=== PATIENT | female | born 1970 | race Caucasian/White ===

== ENCOUNTER 2019-12-31 05:40 | Inpatient (IN) | payer BC, OTHER ==
[~2019-12-31] VITALS: Ht 172.7 cm; Wt 79.4 kg
[2019-12-31] MEDS ORDERED: LIDOCAINE 2% VISCOUS 15 ML UDC PO ONE (06:00)
[2019-12-31] MEDS ORDERED: ANTACID SUSP 30 ML UDC (MYLANTA) PO ONE (06:00)
[2019-12-31] MEDS ORDERED: NS IV 1000 ML 1,000 ML IV SCH (06:00)
[2019-12-31] MEDS ORDERED: ONDANSETRON 4 MG/2 ML (SDV) Z0FRAN IVP ONE (06:00)
[2019-12-31 06:08] LABS: BASOPHILS % (AUTO) 0 % (0-10); EOSINOPHILS # (AUTO) 0.4 10^3/uL (0.0-0.3); EOSINOPHILS % (AUTO) 3 % (0-10); HEMATOCRIT 43 % (35-52); HEMOGLOBIN 13.7 G/DL (11.5-16.0); LYMPHOCYTES # (AUTO) 1.7 X 10^3 (1.0-4.0); LYMPHOCYTES % (AUTO) 13 % (12-44); MEAN CORPUSCULAR HEMOGLOBIN 27 PG (25-34); MEAN CORPUSCULAR HGB CONC 32 G/DL (32-36); MEAN CORPUSCULAR VOLUME 85 FL (80-99); MEAN PLATELET VOLUME 10.9 FL (7.4-10.4); MONOCYTES # (AUTO) 0.5 X 10^3 (0.0-1.0); MONOCYTES % (AUTO) 4 % (0-12); NEUTROPHILS # (AUTO) 9.9 X 10^3 (1.8-7.8); NEUTROPHILS % (AUTO) 79 % (42-75); PLATELET COUNT 296 10^3/uL (130-400); RED CELL DISTRIBUTION WIDTH 13.2 % (10.0-14.5); WHITE BLOOD COUNT 12.6 10^3/uL (4.3-11.0)
[2019-12-31] MEDS ORDERED: fentaNYL INJECTION 100 MCG/2 ML AMP IVP STA ×4 (06:10→09:09)
[2019-12-31] MEDS ORDERED: PANTOPRAZOLE 40 MG (PROTONIX) VIAL IV STA (06:11)
--- NOTE | 2019-12-31 06:24 | ED Abdominal Pain ---
General Chief Complaint: Chest Pain Stated Complaint: ABD AND SHOULDER PAIN Nursing Triage Note: PT. C/O MID STERNAL CHEST PAIN AND LEFT ARM PAIN. PT. REPORTED SHE COULD NOT LAY FLAT. PT. STATED THE PAIN STARTED AROUND 0300 THIS AM. PT. REPORTED HAVING A FEVER AND CHILLS THIS WEEK. Sepsis Screen: No Definite Risk Source of Information: Patient History of Present Illness Date Seen by Provider: Dec 31, 2019 Time Seen by Provider: 06:04 Initial Comments 49 yo F presenting with complaints of epigastric pain radiating to her left shoulder that came on suddenly at 3 am. She states the pain is sharp in nature and associated with nausea. She has increased pain with trying to lay back. She has history of a Ifeoma-n-y surgery for weight loss in 2014 at [facility]. She had her gallbladder removed in the past as well. She denies having pain like this before. The pain radiates to her left shoulder. She has no pain down lower in the abdomen but it is in the epigastric area of her abdomen. She has no shortness of breath, but it hurts to take a deep breath because it makes the epigastric pain worse. She has had recent subjective fever and chills this last week and general malaise but thought she had a viral illness or the "flu" but never had a cough. Allergies and Home Medications Allergies Coded Allergies: codeine (Verified Allergy, Unknown, 12/31/19) Patient Home Medication List Home Medication List Reviewed: Yes Review of Systems Review of Systems Constitutional: chills (earlier in the week), fever (earlier in the week) EENTM: No Symptoms Reported Respiratory: See HPI Cardiovascular: See HPI Gastrointestinal: See HPI, Abdominal Pain (epigastric area) Genitourinary: No Symptoms Reported Musculoskeletal: see HPI Skin: no symptoms reported Psychiatric/Neurological: Anxiety, Headache (this last week) Past Bztbkal-Dgdjza-Ofvmwl Hx Past Med/Social Hx: Reviewed Nursing Past Med/Soc Hx Patient Social History Recent Foreign Travel: No Contact w/Someone Who Travel: No Recent Infectious Disease Expo: No Past Medical History Surgeries: Yes Abdominal (Ifeoma-n-y Gastric Bypass for weight loss), Gallbladder Respiratory: No Cardiac: No Neurological: No Reproductive Disorders: No Genitourinary: No Physical Exam Vital Signs Vital Signs - First Documented 12/31/19 05:50 Temp 36.5 Pulse 70 Resp 16 B/P (MAP) 106/79 (88) O2 Delivery Room Air Capillary Refill : Less Than 3 Seconds Height/Weight/BMI Height: '" Weight: lbs. oz. kg; 26.00 BMI Method: General Appearance: WD/WN, severe distress (crying out in pain and very anxious) HEENT: PERRL/EOMI, pharynx normal Neck: non-tender, full range of motion, supple Respiratory: chest non-tender, lungs clear, normal breath sounds Cardiovascular: normal peripheral pulses, regular rate, rhythm Gastrointestinal: soft, no pulsatile mass, abnormal bowel sounds (hypoactive), guarding, tenderness (epigastric pain with palpation) Extremities: normal range of motion, non-tender, normal capillary refill Neurologic/Psychiatric: alert, oriented x 3, other (pt very anxious and in distress holding her epigastric area) Skin: normal color, warm/dry Progress/Results/Core Measures Results/Orders Lab Results Laboratory Tests Test 12/31/19 05:55 Range/Units White Blood Count 12.6 H 4.3-11.0 10^3/uL Red Blood Count 5.08 4.35-5.85 10^6/uL Hemoglobin 13.7 11.5-16.0 G/DL Hematocrit 43 35-52 % Mean Corpuscular Volume 85 80-99 FL Mean Corpuscular Hemoglobin 27 25-34 PG Mean Corpuscular Hemoglobin Concent 32 32-36 G/DL Red Cell Distribution Width 13.2 10.0-14.5 % Platelet Count 296 130-400 10^3/uL Mean Platelet Volume 10.9 H 7.4-10.4 FL Neutrophils (%) (Auto) 79 H 42-75 % Lymphocytes (%) (Auto) 13 12-44 % Monocytes (%) (Auto) 4 0-12 % Eosinophils (%) (Auto) 3 0-10 % Basophils (%) (Auto) 0 0-10 % Neutrophils # (Auto) 9.9 H 1.8-7.8 X 10^3 Lymphocytes # (Auto) 1.7 1.0-4.0 X 10^3 Monocytes # (Auto) 0.5 0.0-1.0 X 10^3 Eosinophils # (Auto) 0.4 H 0.0-0.3 10^3/uL Basophils # (Auto) 0.0 0.0-0.1 10^3/uL Sodium Level 138 135-145 MMOL/L Potassium Level 4.7 3.6-5.0 MMOL/L Chloride Level 103 98-107 MMOL/L Carbon Dioxide Level 20 L 21-32 MMOL/L Anion Gap 15 H 5-14 MMOL/L Blood Urea Nitrogen 14 7-18 MG/DL Creatinine 0.97 0.60-1.30 MG/DL Estimat Glomerular Filtration Rate > 60 BUN/Creatinine Ratio 14 Glucose Level 139 H 70-105 MG/DL Calcium Level 9.1 8.5-10.1 MG/DL Corrected Calcium 9.2 8.5-10.1 MG/DL Total Bilirubin 0.3 0.1-1.0 MG/DL Aspartate Amino Transf (AST/SGOT) 25 5-34 U/L Alanine Aminotransferase (ALT/SGPT) 16 0-55 U/L Alkaline Phosphatase 64 40-136 U/L Troponin I < 0.30 <0.30 NG/ML Total Protein 7.6 6.4-8.2 GM/DL Albumin 3.9 3.2-4.5 GM/DL Amylase Level 67 25-125 U/L Lipase 45 8-78 U/L My Orders Orders - RADHA BANG MD Fentanyl Injection (Sublimaze Injection (12/31/19 06:10) Pantoprazole Injection (Protonix Injecti (12/31/19 06:11) Iohexol Injection (Omnipaque 350 Mg/Ml 1 (12/31/19 06:45) Received Contrast (Hold Metformin- Contr (12/31/19 06:45) Sodium Chloride Flush (Catheter Flush Sy (12/31/19 06:45) Ns (Ivpb) (Sodium Chloride 0.9% Ivpb Bag (12/31/19 06:45) Fentanyl Injection (Sublimaze Injection (12/31/19 07:17) Ns Iv 1000 Ml (Sodium Chloride 0.9%) (12/31/19 08:26) Fentanyl Injection (Sublimaze Injection (12/31/19 08:26) Ciprofloxacin Iv 400mg/200ml (Cipro Iv S (12/31/19 08:35) Metronidazole 500mg/100ml Ivpb (Flagyl 5 (12/31/19 08:35) Medications Given in ED Current Medications Medications Dose Ordered Sig/Otis Route Start Time Stop Time Status Last Admin Dose Admin Al Hydrox/Mg Hydrox/Simethicone 30 ml ONCE ONCE PO 12/31/19 06:00 12/31/19 06:01 DC 12/31/19 06:05 30 ML Iohexol 100 ml ONCE ONCE IV 12/31/19 06:45 12/31/19 06:54 DC 12/31/19 07:05 100 ML Lidocaine HCl 15 ml ONCE ONCE PO 12/31/19 06:00 12/31/19 06:01 DC 12/31/19 06:06 15 ML Ondansetron HCl 4 mg ONCE ONCE IVP 12/31/19 06:00 12/31/19 06:01 DC 12/31/19 06:08 4 MG Sodium Chloride 10 ml NEEDED PRN IV 12/31/19 06:45 12/31/19 07:05 10 ML Sodium Chloride 100 ml ONCE ONCE IV 12/31/19 06:45 12/31/19 06:54 DC 12/31/19 07:05 80 ML Vital Signs/I&O 12/31/19 12/31/19 05:50 05:50 Temp 36.5 Pulse 70 Resp 16 B/P (MAP) 106/79 (88) O2 Delivery Room Air Room Air Blood Pressure Mean: 88 Progress Progress Note #1: Progress Note I assumed care from Dr. Moeller at 6 am on the patient. Will order Fentanyl for pain and with her history of gastric bypass surgery will see what her CT scan shows to evaluate her pain. Protonix also given to try and help control her pain symptoms in case this is gastritis. Her CBC shows elevation of her WBC count. rest of labs pending. ECG shows sinus rhythm without ST elevation and no prior tracing for comparison. Progress Note #2: Time: 06:31 Progress Note Chemistry does not show any acute significant abnormality on her electrolytes, troponin or lipase, other than she has mild elevation of glucose to 139. CXR 1 view on my review of the film shows no acute process. She has improved pain and symptoms after Protonix and fentanyl. Still waiting on Urine specimen. Will try to get CT scan to evaluate her epigastric area better. Progress Note #3: Time: 07:59 Progress Note Pt was having pain on return from CT but her blood pressure was initially only 102 systolic so given Fentanyl 25 mcg. Awaiting reading on imaging. CXR read out by radiology as no acute findings. CT report still pending at this time. Progress Note #4: Time: 08:31 Progress Note Discussed with Dr. Bruno and he did accept the patient for admission to his service for antibiotics and pain control. We will start with clear liquids and progress as she tolerates. Initial ECG Impression Date: Dec 31, 2019 Initial ECG Impression Time: 05:57 Initial ECG Rate: 68 Initial ECG Rhythm: Normal Sinus Initial ECG Comparisson: No Previous ECG Available Comment Normal sinus rhythm with heart rate 68 bpm. [place] interval 121 ms. She has no acute ST elevation but does have probable normal early repolarization changes. Her QT interval is 398 ms and a QTc interval 424 ms. There is no prior tracing available for comparison. Diagnostic Imaging Diagonstic Imaging: Xray Plain Films/CT/US/NM/MRI: chest Comments On my review of her 1 view chest x-ray she has no acute infiltrate or effusion. NAME: ESTEFANIBEATRIS HOLLOWAY [facility] REC#: [id number] PT STATUS: REG ER : 1970 PHYSICIAN: TREVA MOELLER DO ADMIT DATE: 12/31/19/ER FS Draft Date of Exam:12/31/19 CHEST 1 VIEW AP/PA ONLY INDICATION: Severe back pain. FINDINGS: Portable chest. The lungs are well-aerated and clear. Heart is not enlarged. No pulmonary edema or hilar adenopathy. No pneumothorax or pleural effusion. No bony abnormalities. IMPRESSION: Normal portable chest. Dictated on workstation # [id number] Dict: 12/31/19 0748 Trans: 12/31/19 0750 LIVIER [id number] Interpreted by: FRANCIS CHAIDEZ MD Electronically signed by: Reviewed: Reviewed by Me Diagonstic Imaging: CT Plain Films/CT/US/NM/MRI: abdomen, pelvis Comments NAME: BEATRIS EMMANUEL [facility] REC#: [id number] PT STATUS: REG ER : 1970 PHYSICIAN: TREVA MOELLER DO ADMIT DATE: 12/31/19/ER FS Draft Date of Exam:12/31/19 CT ABDOMEN/PELVIS W PROCEDURE: CT abdomen and pelvis with contrast. TECHNIQUE: Multiple contiguous axial images were obtained through the abdomen and pelvis after administration of intravenous contrast. Auto Exposure Controls were utilized during the CT exam to meet ALARA standards for radiation dose reduction. INDICATION: Sternal chest pain. Febrile. FINDINGS: The lung bases show mild atelectasis on the left. Lower lobes are otherwise clear. The liver appears normal. Gallbladder is absent. Bile ducts are not dilated. Pancreas and spleen are normal. The adrenal glands are normal. Kidneys are normal. There is normal enhancement of the abdominal organs and vessels following IV contrast. The aorta shows no evidence of aneurysm or dissection. There is no evidence of hiatal hernia. There are surgical changes noted in the stomach. The small bowel is not distended. The colon shows normal stool and gas pattern. There is thickening of the descending colon bowel wall focal in nature in the mid descending colon. There is surrounding mesenteric edema as well. No evidence of constipation. There is gas and stool to the rectum. No pelvic masses are seen. Bladder is nondistended. No intra-abdominal adenopathy. No free air. No blastic or lytic bony changes. IMPRESSION: 1. Abnormal focal area of the descending colon with bowel wall thickening and adjacent mesenteric edema. This is likely inflammatory in nature though underlying malignancy cannot be excluded. Follow-up is indicated. No evidence of bowel obstruction. 2. Postsurgical changes of the stomach and small bowel without obstruction. Dictated on workstation # [id number] Dict: 12/31/19 0749 Trans: 12/31/19 0756 LIVIER [id number] Interpreted by: FRANCIS CHAIDEZ MD Electronically signed by: Departure Communication (Admissions) Time/Spoke to Admitting Phy: 08:31 D/w Dr. Bruno and he accepted pt for admit and requested clear liquids, cipro and flagyl bid. PRN fentanyl and zofran for pain and nausea. . Impression Primary Impression: Colitis presumed infectious Additional Impression: Epigastric abdominal pain Disposition: ADMITTED INPATIENT Condition: Stable Admissions Decision to Admit Reason: Admit from ER (General) Decision to Admit/Date: Dec 31, 2019 Time/Decision to Admit Time: 08:31 Departure-Patient Inst. Referrals: AMI ORDOÑEZ MD (PCP/Family) Primary Care Physician RADHA BANG MD Dec 31, 2019 06:24
[2019-12-31 06:26] LABS: BUN/CREATININE RATIO 14; CARBON DIOXIDE 20 MMOL/L (21-32); CHLORIDE 103 MMOL/L (98-107); CREATININE SERUM 0.97 MG/DL (0.60-1.30); GFR ESTIMATED > 60; POTASSIUM 4.7 MMOL/L (3.6-5.0); SODIUM 138 MMOL/L (135-145)
[2019-12-31 06:27] LABS: ALANINE AMINOTRANSFERASE 16 U/L (0-55); ALBUMIN 3.9 GM/DL (3.2-4.5); ALKALINE PHOSPHATASE 64 U/L (40-136); AMYLASE 67 U/L (25-125); BILIRUBIN,TOTAL 0.3 MG/DL (0.1-1.0); CALCIUM 9.1 MG/DL (8.5-10.1); GLUCOSE 139 MG/DL (70-105); LIPASE 45 U/L (8-78); TOTAL PROTEIN 7.6 GM/DL (6.4-8.2)
--- NOTE | 2019-12-31 06:38 | NUR ---
PT. IS NOW MUCH MORE COMFORTABLE. SHE IS ABLE TO LAY BACK IN THE BED AND IS NOT MOANING IN PAIN.
[2019-12-31] MEDS ORDERED: CATHETER FLUSH 10 ML SYR IV PRN (06:45)
[2019-12-31] MEDS ORDERED: NS 100 ML (IVPB) BAG IV ONE (06:45)
[2019-12-31] MEDS ORDERED: IOHEXOL 350 MG/ML 100 ML (OMNIPAQUE 350) VIAL IV ONE (06:45)
[2019-12-31] MEDS ORDERED: HOLD METFORMIN - RECEIVED CONTRAST 20 ML VIAL IV SCH (06:45)
--- NOTE | 2019-12-31 07:51 | Diagnostic Imaging Report ---
INDICATION: Severe back pain. FINDINGS: Portable chest. The lungs are well-aerated and clear. Heart is not enlarged. No pulmonary edema or hilar adenopathy. No pneumothorax or pleural effusion. No bony abnormalities. IMPRESSION: Normal portable chest. Dictated by: Dictated on workstation # [id number]
--- NOTE | 2019-12-31 07:57 | Diagnostic Imaging Report ---
PROCEDURE: CT abdomen and pelvis with contrast. TECHNIQUE: Multiple contiguous axial images were obtained through the abdomen and pelvis after administration of intravenous contrast. Auto Exposure Controls were utilized during the CT exam to meet ALARA standards for radiation dose reduction. INDICATION: Sternal chest pain. Febrile. FINDINGS: The lung bases show mild atelectasis on the left. Lower lobes are otherwise clear. The liver appears normal. Gallbladder is absent. Bile ducts are not dilated. Pancreas and spleen are normal. The adrenal glands are normal. Kidneys are normal. There is normal enhancement of the abdominal organs and vessels following IV contrast. The aorta shows no evidence of aneurysm or dissection. There is no evidence of hiatal hernia. There are surgical changes noted in the stomach. The small bowel is not distended. The colon shows normal stool and gas pattern. There is thickening of the descending colon bowel wall focal in nature in the mid descending colon. There is surrounding mesenteric edema as well. No evidence of constipation. There is gas and stool to the rectum. No pelvic masses are seen. Bladder is nondistended. No intra-abdominal adenopathy. No free air. No blastic or lytic bony changes. IMPRESSION: 1. Abnormal focal area of the descending colon with bowel wall thickening and adjacent mesenteric edema. This is likely inflammatory in nature though underlying malignancy cannot be excluded. Follow-up is indicated. No evidence of bowel obstruction. 2. Postsurgical changes of the stomach and small bowel without obstruction. Dictated by: Dictated on workstation # [id number]
[2019-12-31] MEDS ORDERED: NS IV 1000 ML 1,000 ML IV STA (08:26)
[2019-12-31] MEDS ORDERED: CIPROFLOXACIN IV 400MG/200ML 200 ML IV STA (08:35)
[2019-12-31] MEDS ORDERED: metroNIDAZOLE 500MG/100ML IVPB 100 ML IV STA (08:35)
[2019-12-31] MEDS ORDERED: ONDANSETRON 4 MG/2 ML (SDV) Z0FRAN IVP STA (09:03)
--- NOTE | 2019-12-31 10:20 | NUR ---
BEATRIS EMMANUEL admitted to room 417-1, with an admitting diagnosis of ABDOMINAL PAIN/ COLITIS, on 12/31/19 from [facility], accompanied by ED PERSONNEL. BEATRIS EMMANUEL introduced to surroundings, call light, bed controls, phone, TV, temperature control, lights, meal times, smoking policy, visitor policy, side rail policy, bathrooms and showers. Patient Rights given to patient in the handbook. BEATRIS EMMANUEL verbalizes understanding that [facility] is not responsible for the loss or damage to any personal effects or valuables that are kept in the patients posession during their hospitalization. The following Patient Care Plans were discussed with the PATIENT: Discharge Planning, DIET,PLAN FOR CONTROL OF PAIN,AND ACTIVITY TOLERANCE. BEATRIS EMMANUEL verbalizes understanding of Interdisciplinary Patient Education.
[2019-12-31] MEDS ORDERED: fentaNYL INJECTION 100 MCG/2 ML AMP IV PRN (10:45)
[2019-12-31] MEDS ORDERED: HYDROmorphone 2 MG/ML VIAL (DILAUDID) IV PRN (11:15)
[2019-12-31] MEDS ORDERED: CYAN-41 PO (11:59)
[2019-12-31] MEDS ORDERED: MULT1TAB69 PO (11:59)
[2019-12-31] MEDS ORDERED: CALC-654 PO (11:59)
[2019-12-31] MEDS ORDERED: FERR325T18 PO (11:59)
[2019-12-31] MEDS ORDERED: DESO1TAB70 PO (11:59)
[2019-12-31] MEDS ORDERED: VITA-189 PO (11:59)
--- NOTE | 2019-12-31 11:59 | NUR ---
SPOKE WITH THE PATIENT ABOUT HER MEDICATIONS. SHE STATES SHE TAKES CONTROL, WHICH I CAN SEE HAS BEEN FILLED RECENTLY ON THE EXT MED HX. SHE ALSO TAKES THE FOLLOWING OTC: MTV DAILY B COMPLEX DAILY B12 DAILY IRON EVERY AFTERNOON CALCIUM +D 2 DAILY
[2019-12-31 12:00] VITALS: BP 125/60
[2019-12-31] MEDS: metroNIDAZOLE 500 MG/100 ML IVPB (PRE-MIX) IV SCH (12:12)
[2019-12-31] MEDS: LACTATED RINGERS 1,000 ML IV SCH ×3 (12:14→21:37)
--- NOTE | 2019-12-31 12:21 | HISTORY AND PHYSICAL ---
DATE OF SERVICE: ATTENDING PRIMARY CARE PHYSICIAN: Dr. Jacob. HISTORY OF PRESENT ILLNESS: The patient is a 49-year-old female who presented to [facility] with pain in the epigastric region. She also has some pain in the lower quadrants of her abdomen as well. She states that she recently did have some mild fevers and chills and general malaise and may have had some flu-like symptoms. A CT scan of the abdomen was performed, which did show colitis of the descending colon. She does not report any major issues with diarrhea nor constipation as well as no red blood per rectum nor any dark tarry stools. She is also status post Ifeoma-en-Y gastric bypass in 2015 at [facility]. PAST MEDICAL HISTORY: Morbid obesity. PAST SURGICAL HISTORY: Laparoscopic Ifeoma-en-Y gastric bypass, laparoscopic cholecystectomy. ALLERGIES: No known drug allergies. ALLERGIES: CODEINE. MEDICATIONS: Iron 325 mg daily, multivitamin, vitamin B, Isibloom daily, vitamin B12 daily, calcium daily. SOCIAL HISTORY: Negative smoke, negative alcohol. FAMILY HISTORY: Noncontributory. VITAL SIGNS: Temperature 36.5, blood pressure 106/79, pulse 70, respirations 16. REVIEW OF SYSTEMS: Well-nourished female currently guarded secondary to abdominal pain. She is not experiencing any shortness of breath or difficulty breathing. No chest pain, palpitations, diaphoresis. No nausea, vomiting with some slightly looser stools recently. No red blood per rectum, no dark tarry stools. Did have some fever and chills several days ago; however, none recently. No recent inadvertent weight loss. All other review of systems negative. PHYSICAL EXAMINATION: CHEST: Clear. Good breath sounds bilaterally. HEART: Regular, no murmurs. EXTREMITIES: No lower extremity edema, negative Homans sign. HEENT: No scleral icterus. NECK: No cervical lymphadenopathy. ABDOMEN: Soft, nondistended. There is pain in the epigastric region as well as the left lateral abdomen. No peritoneal signs. No palpable masses. SKIN: Warm, dry. LABORATORY DATA: WBC 12.6, hemoglobin 13.7, hematocrit 43, platelets 296. BUN 14, creatinine 0.97. Liver function enzymes are normal. ASSESSMENT AND PLAN: A 49-year-old female with colitis, which may be secondary to a viral etiology versus influenza versus ingestion of contaminated food or water. We will treat her conservatively and proceed with antibiotics with ciprofloxacin and Flagyl on a b.i.d. basis as well as a clear liquid diet and continue to monitor her clinical examination. Once her inflammation has resolved in approximately 6 weeks, we will have her follow up for an outpatient colonoscopy. Job ID: [id number] DocumentID: [id number] Dictated Date: 12/31/2019 12:11:54 Business Relations Manager Date: 12/31/2019 12:20:19 Dictated By: KIRA ESQUIVEL MD
[2019-12-31] MEDS: ONDANSETRON 4 MG/2 ML (SDV) Z0FRAN IV PRN ×2 (13:00→19:57)
[2019-12-31 13:15] VITALS: BP 121/60
[2019-12-31] MEDS: HYDROcodone/APAP 7.5 MG/325 MG (LORTAB, LORCET PLUS) TABLET PO PRN ×2 (15:23→19:47)
[2019-12-31 16:00] VITALS: BP 133/64
[2019-12-31] MEDS: PROMETHAZINE INJ 25 MG/ML (PHENERGAN) AMP IVP PRN ×2 (17:02→21:37)
[2019-12-31] MEDS: fentaNYL INJECTION 100 MCG/2 ML AMP IV PRN ×3 (18:19→21:33)
[2019-12-31 20:41] VITALS: BP 121/59
[2019-12-31] MEDS: ENOXAPARIN 40 MG/0.4 ML (LOVENOX) SYR SC SCH (21:57)
[2019-12-31] MEDS: CIPROFLOXACIN 400 MG/D5W 200 ML (PRE-MIX) IV SCH (21:57)
--- NOTE | 2019-12-31 22:30 | NUR ---
NO URINE OUTPUT ALL DAY. BLADDER SCANNED SHOWED 523ml. THIS NURSE HELPED PT TO BATHROOM. ABLE TO VOID 575MLS. WILL CONTINUE TO MONITOR
[2020-01-01] VITALS (7 sets, daily range): BP systolic 108–132; BP diastolic 56–73
--- NOTE | 2020-01-01 | NUR ---
PT REPORTS PAIN UNABLE TO BE LOWERED TO A 5/10 ALL DAY, SINCE ADMISSION. DR ESQUIVEL CALLED, NEW ORDERS RECEIVED, SEE ORDER HISTORY.
[2020-01-01] MEDS: metroNIDAZOLE 500 MG/100 ML IVPB (PRE-MIX) IV SCH ×2 (00:59→12:51)
[2020-01-01] MEDS: HYDROmorphone 2 MG/ML VIAL (DILAUDID) IV PRN ×8 (01:00→20:53)
[2020-01-01] MEDS: KETOROLAC 15 MG/ML VIAL IVP PRN ×2 (03:37→12:42)
[2020-01-01] MEDS: ONDANSETRON 4 MG/2 ML (SDV) Z0FRAN IV PRN ×3 (03:37→18:36)
[2020-01-01] MEDS: PROMETHAZINE INJ 25 MG/ML (PHENERGAN) AMP IVP PRN ×3 (05:51→21:23)
[2020-01-01] MEDS: LACTATED RINGERS 1,000 ML IV SCH ×2 (06:57→16:22)
[2020-01-01 07:07] LABS: BASOPHILS % (AUTO) 0 % (0-10); EOSINOPHILS % (AUTO) 0 % (0-10); HEMATOCRIT 34 % (35-52); LYMPHOCYTES # (AUTO) 0.9 X 10^3 (1.0-4.0); LYMPHOCYTES % (AUTO) 8 % (12-44); MEAN CORPUSCULAR HEMOGLOBIN 27 PG (25-34); MEAN CORPUSCULAR HGB CONC 32 G/DL (32-36); MEAN CORPUSCULAR VOLUME 83 FL (80-99); MEAN PLATELET VOLUME 10.8 FL (7.4-10.4); MONOCYTES # (AUTO) 0.5 X 10^3 (0.0-1.0); MONOCYTES % (AUTO) 5 % (0-12); NEUTROPHILS # (AUTO) 9.7 X 10^3 (1.8-7.8); NEUTROPHILS % (AUTO) 87 % (42-75); PLATELET COUNT 234 10^3/uL (130-400); RED CELL DISTRIBUTION WIDTH 13.7 % (10.0-14.5); WHITE BLOOD COUNT 11.2 10^3/uL (4.3-11.0)
[2020-01-01 07:28] LABS: ALANINE AMINOTRANSFERASE 46 U/L (0-55); ALBUMIN 3.4 GM/DL (3.2-4.5); ALKALINE PHOSPHATASE 79 U/L (40-136); BILIRUBIN,TOTAL 0.5 MG/DL (0.1-1.0); BUN/CREATININE RATIO 15; CALCIUM 8.8 MG/DL (8.5-10.1); CARBON DIOXIDE 22 MMOL/L (21-32); CHLORIDE 106 MMOL/L (98-107); CREATININE SERUM 0.82 MG/DL (0.60-1.30); GFR ESTIMATED > 60; GLUCOSE 103 MG/DL (70-105); POTASSIUM 3.7 MMOL/L (3.6-5.0); SODIUM 137 MMOL/L (135-145); TOTAL PROTEIN 6.5 GM/DL (6.4-8.2)
[2020-01-01 07:32] LABS: BAND NEUTROPHILS 0 %; BASOPHILS % (MANUAL) 0 %; EOSINOPHILS % (MANUAL) 0 %; LYMPHOCYTES % (MANUAL) 8 %; MONOCYTES % (MANUAL) 3 %; NEUTROPHILS % (MANUAL) 89 %; RBC MORPH NORMAL
[2020-01-01] MEDS: CIPROFLOXACIN 400 MG/D5W 200 ML (PRE-MIX) IV SCH ×2 (08:26→21:38)
--- NOTE | 2020-01-01 08:39 | NUR ---
PT REPORTS NAUSEA AND DRY HEAVES AND CONTINUED PAIN. DR ESQUIVEL NOTIFIED NEW ORDERS RECEIVED AND PLACED IN EMR.
[2020-01-01] MEDS: METOCLOPRAMIDE INJ 10 MG/2 ML (REGLAN) IVP PRN ×2 (08:45→15:31)
[2020-01-01] MEDS: HYDROcodone/APAP 7.5 MG/325 MG (LORTAB, LORCET PLUS) TABLET PO PRN ×2 (09:35→14:23)
--- NOTE | 2020-01-01 09:38 | Diagnostic Imaging Report ---
INDICATION: Nausea. Pain FINDINGS: There is contrast media within the urinary bladder. The bowel gas pattern unremarkable. Postsurgical changes in the left and right upper quadrants noted. No abnormal fecal loading. No evidence for bowel obstruction. No pneumatosis or free gas found. No air-fluid levels. IMPRESSION: Unopacified urinary bladder and prior surgical changes, no acute appearing abnormality identified. Dictated by: Dictated on workstation # [id number]
[2020-01-01] MEDS ORDERED: FLEET ENEMA ADULT 1 EA BTL PR NR (10:15)
--- NOTE | 2020-01-01 15:14 | Progress Note ---
Subjective Date Seen by a Provider: Jan 01, 2020 Time Seen by a Provider: 14:40 Subjective/Events-last exam Patient seen with Dr. Bruno. Patient reports still having abdominal pain that is more towards LUQ. Also reports nausea and vomiting. Denies any fever/chills. Has only had ice chips due to unable to tolerate any other liquid without vomiting. Reports she has not had a BM in several days. Received enema this AM and patient reports only liquid. Objective Exam Vital Signs Date Time Temp Pulse Resp B/P (MAP) Pulse Ox O2 Delivery O2 Flow Rate FiO2 01/01/20 11:37 37.0 67 14 120/60 (80) 97 Room Air 01/01/20 08:30 99 Room Air 01/01/20 08:00 36.8 61 16 117/57 (77) 99 Room Air 01/01/20 04:55 36.8 65 18 118/56 (76) 99 Room Air 01/01/20 00:31 36.6 63 20 110/71 (84) 98 Room Air 12/31/19 20:41 36.6 62 14 121/59 (79) 97 Room Air 12/31/19 19:55 Room Air 12/31/19 16:00 36.4 65 22 133/64 (87) 99 Room Air I & O 01/01/20 07:00 Intake Total 2950 ml Output Total 832 ml Balance 2118 ml Capillary Refill : Less Than 3 SecondsLess Than 3 Seconds General Appearance: No Apparent Distress Neck: Full Range of Motion, Non Tender, Supple Respiratory: Normal Breath Sounds, No Accessory Muscle Use, No Respiratory Distress Cardiovascular: Regular Rate, Rhythm, No Murmur Gastrointestinal: soft, tenderness Extremity: Normal Capillary Refill, Normal Inspection, Normal Range of Motion Neurologic/Psychiatric: Alert, Oriented x3 Skin: Normal Color, Warm/Dry Results Lab Laboratory Tests 01/01/20 07:00: White Blood Count 11.2H, Red Blood Count 4.14L, Hemoglobin 11.0L, Hematocrit 34L , Mean Corpuscular Volume 83, Mean Corpuscular Hemoglobin 27, Mean Corpuscular Hemoglobin Concent 32, Red Cell Distribution Width 13.7, Platelet Count 234, Mean Platelet Volume 10.8H, Neutrophils (%) (Auto) 87H, Lymphocytes (%) (Auto) 8L, Monocytes (%) (Auto) 5, Eosinophils (%) (Auto) 0, Basophils (%) (Auto) 0, Neutrophils # (Auto) 9.7H, Lymphocytes # (Auto) 0.9L, Monocytes # (Auto) 0.5, Eosinophils # (Auto) 0.0, Basophils # (Auto) 0.0, Neutrophils % (Manual) 89, Lymphocytes % (Manual) 8, Monocytes % (Manual) 3, Eosinophils % (Manual) 0, Basophils % (Manual) 0, Band Neutrophils 0, Blood Morphology Comment NORMAL, Sodium Level 137, Potassium Level 3.7, Chloride Level 106, Carbon Dioxide Level 22, Anion Gap 9, Blood Urea Nitrogen 12, Creatinine 0.82, Estimat Glomerular Filtration Rate > 60, BUN/Creatinine Ratio 15, Glucose Level 103, Calcium Level 8.8, Corrected Calcium 9.3, Total Bilirubin 0.5, Aspartate Amino Transf (AST/SGOT) 32, Alanine Aminotransferase (ALT/SGPT) 46, Alkaline Phosphatase 79, Total Protein 6.5, Albumin 3.4 Assessment/Plan Assessment/Plan Assess & Plan/Chief Complaint A 49-year-old female with colitis, which may be secondary to a viral etiology versus influenza versus ingestion of contaminated food or water. VSS WBC 11.2 Will continue with IV abx, pain, and nausea medications Bowel rest Will continue to monitor. Clinical Quality Measures AMI/AHF: ASA po Prior to arrival: No DVT/VTE Risk/Contraindication: Risk Factor Score Per Nursin RFS Level Per Nursing on Admit: 3=High LOLITA WASHBURN APRN Jan 01, 2020 15:14
[2020-01-01] MEDS ORDERED: FLEET ENEMA ADULT 1 EA BTL PR PRN (16:15)
[2020-01-01] MEDS: DEXAMETHASONE 4 MG/ML SDV (DECADRON) IV PRN (18:37)
[2020-01-01] MEDS: ENOXAPARIN 40 MG/0.4 ML (LOVENOX) SYR SC SCH (21:28)
[2020-01-01] MEDS: PANTOPRAZOLE 40 MG (PROTONIX) VIAL IV SCH (21:28)
[2020-01-02] MEDS: metroNIDAZOLE 500 MG/100 ML IVPB (PRE-MIX) IV SCH (00:05)
[2020-01-02] MEDS: HYDROcodone/APAP 7.5 MG/325 MG (LORTAB, LORCET PLUS) TABLET PO PRN ×5 (00:05→17:54)
[2020-01-02] MEDS: METOCLOPRAMIDE INJ 10 MG/2 ML (REGLAN) IVP PRN ×4 (00:50→18:34)
[2020-01-02] MEDS: LACTATED RINGERS 1,000 ML IV SCH ×3 (03:09→18:37)
[2020-01-02] MEDS: DEXAMETHASONE 4 MG/ML SDV (DECADRON) IV PRN ×4 (04:08→18:34)
[2020-01-02] MEDS: ONDANSETRON 4 MG/2 ML (SDV) Z0FRAN IV PRN ×4 (04:08→17:47)
[2020-01-02] MEDS: KETOROLAC 15 MG/ML VIAL IVP PRN ×3 (04:09→14:23)
[2020-01-02 04:25] VITALS: BP 127/68
[2020-01-02 05:38] LABS: BASOPHILS % (AUTO) 0 % (0-10); EOSINOPHILS % (AUTO) 0 % (0-10); HEMATOCRIT 31 % (35-52); HEMOGLOBIN 10.1 G/DL (11.5-16.0); LYMPHOCYTES # (AUTO) 0.5 X 10^3 (1.0-4.0); LYMPHOCYTES % (AUTO) 5 % (12-44); MEAN CORPUSCULAR HEMOGLOBIN 27 PG (25-34); MEAN CORPUSCULAR HGB CONC 33 G/DL (32-36); MEAN CORPUSCULAR VOLUME 83 FL (80-99); MEAN PLATELET VOLUME 10.8 FL (7.4-10.4); MONOCYTES # (AUTO) 0.3 X 10^3 (0.0-1.0); MONOCYTES % (AUTO) 3 % (0-12); NEUTROPHILS # (AUTO) 9.7 X 10^3 (1.8-7.8); NEUTROPHILS % (AUTO) 92 % (42-75); PLATELET COUNT 236 10^3/uL (130-400); RED CELL DISTRIBUTION WIDTH 13.9 % (10.0-14.5); WHITE BLOOD COUNT 10.5 10^3/uL (4.3-11.0)
[2020-01-02 06:02] LABS: ALANINE AMINOTRANSFERASE 30 U/L (0-55); ALBUMIN 3.1 GM/DL (3.2-4.5); ALKALINE PHOSPHATASE 79 U/L (40-136); BILIRUBIN,TOTAL 0.3 MG/DL (0.1-1.0); BUN/CREATININE RATIO 14; CALCIUM 8.8 MG/DL (8.5-10.1); CARBON DIOXIDE 21 MMOL/L (21-32); CHLORIDE 107 MMOL/L (98-107); CREATININE SERUM 0.79 MG/DL (0.60-1.30); GFR ESTIMATED > 60; GLUCOSE 114 MG/DL (70-105); SODIUM 137 MMOL/L (135-145); TOTAL PROTEIN 6.1 GM/DL (6.4-8.2)
[2020-01-02] MEDS: PROMETHAZINE INJ 25 MG/ML (PHENERGAN) AMP IVP PRN ×3 (06:27→16:11)
[2020-01-02 08:00] VITALS: BP 159/74
[2020-01-02] MEDS: HYDROmorphone 2 MG/ML VIAL (DILAUDID) IV PRN ×5 (08:15→20:41)
[2020-01-02] MEDS: PANTOPRAZOLE 40 MG (PROTONIX) VIAL IV SCH ×2 (09:16→20:40)
[2020-01-02] MEDS: CIPROFLOXACIN 400 MG/D5W 200 ML (PRE-MIX) IV SCH (09:18)
[2020-01-02] MEDS ORDERED: ONDANSETRON 4 MG/2 ML (SDV) Z0FRAN IVP NR (09:30)
[2020-01-02] MEDS ORDERED: SCOPOLAMINE 1.5 MG (TRANSDERM-SCOP) PATCH TD NR (09:30)
--- NOTE | 2020-01-02 09:58 | Progress Note ---
Subjective Date Seen by a Provider: Jan 02, 2020 Time Seen by a Provider: 09:30 Subjective/Events-last exam doing ok. still has intermittent nausea. had large bowel movement with enema. Objective Exam Vital Signs Date Time Temp Pulse Resp B/P (MAP) Pulse Ox O2 Delivery O2 Flow Rate FiO2 01/02/20 08:00 36.6 68 22 159/74 (102) 99 Room Air 01/02/20 04:25 37.1 71 17 127/68 (87) 97 Room Air 01/01/20 23:50 36.8 63 20 132/64 (86) 98 Room Air 01/01/20 20:00 37.1 83 20 125/73 (90) 98 Room Air 01/01/20 20:00 98 Room Air 01/01/20 16:00 37.4 57 18 108/69 (82) 98 Room Air 01/01/20 11:37 37.0 67 14 120/60 (80) 97 Room Air I & O 01/02/20 07:00 Intake Total 1900 ml Output Total 250 ml Balance 1650 ml Capillary Refill : Less Than 3 SecondsLess Than 3 Seconds General Appearance: No Apparent Distress HEENT: PERRL/EOMI Neck: Full Range of Motion Respiratory: Chest Non Tender, Lungs Clear, Normal Breath Sounds Cardiovascular: Regular Rate, Rhythm Gastrointestinal: soft, tenderness Extremity: Normal Capillary Refill Neurologic/Psychiatric: Alert, Oriented x3 Skin: Normal Color Lymphatic: No Adenopathy Results Lab Laboratory Tests 01/02/20 05:15: White Blood Count 10.5, Red Blood Count 3.73L, Hemoglobin 10.1L, Hematocrit 31L, Mean Corpuscular Volume 83, Mean Corpuscular Hemoglobin 27, Mean Corpuscular Hemoglobin Concent 33, Red Cell Distribution Width 13.9, Platelet Count 236, Mean Platelet Volume 10.8H, Neutrophils (%) (Auto) 92H, Lymphocytes (%) (Auto) 5L, Monocytes (%) (Auto) 3, Eosinophils (%) (Auto) 0, Basophils (%) (Auto) 0, Neutrophils # (Auto) 9.7H, Lymphocytes # (Auto) 0.5L, Monocytes # (Auto) 0.3, Eosinophils # (Auto) 0.0, Basophils # (Auto) 0.0, Sodium Level 137, Potassium Level 4.0, Chloride Level 107, Carbon Dioxide Level 21, Anion Gap 9, Blood Urea Nitrogen 11, Creatinine 0.79, Estimat Glomerular Filtration Rate > 60, BUN/Creatinine Ratio 14, Glucose Level 114H, Calcium Level 8.8, Corrected Calcium 9.5, Total Bilirubin 0.3, Aspartate Amino Transf (AST/SGOT) 15, Alanine Aminotransferase (ALT/SGPT) 30, Alkaline Phosphatase 79, Total Protein 6.1L, Albumin 3.1L Assessment/Plan Assessment/Plan Assess & Plan/Chief Complaint nausea/vomiting likely secondary gastritis and segmental colitis. cont abx. ambulate. cont PPI BID. consult hospitalist. Clinical Quality Measures AMI/AHF: ASA po Prior to arrival: No DVT/VTE Risk/Contraindication: Risk Factor Score Per Nursin RFS Level Per Nursing on Admit: 3=High KIRA ESQUIVEL MD Jan 02, 2020 09:58
[2020-01-02] MEDS ORDERED: PIPERACILLIN/TAZO 4.5 GM/NS 100 ML IV NR ×2 (10:15)
[2020-01-02 12:07] VITALS: BP 160/83
[2020-01-02] MEDS: fentaNYL INJECTION 100 MCG/2 ML AMP IV PRN (14:28)
--- NOTE | 2020-01-02 14:32 | NUR ---
"RD ASSESSMENT PMHx: no significant PMH; Past SurgHx - lap Ifeoma-en-Y surgery 15years ago; current admit - colitis PT INTERACTION: Pt was awake and pleasant during nutrition assessment. Note pt past surg hx of Lap Ifeoma-en-Y surgery 15 years ago. Pt states current appetite is poor and has been for more than a week. Note avg PO intake of <25% x2meal, per chart review. Pt states following a low-CHO diet at home, and has no issues with chewing/swallowing food. Pt states episodes of nausea and dry heaves. Pt states recent episodes of constipation. Note last BM was 01/01 and pt not currently on bowel regimen per chart review. Pt states no recent wt changes. Note unable to determine recent wt hx, per chart review. ABNORMAL NUTRITION-RELATED LAB VALUES LOW: Pro 6.1; alb 3.1 HIGH: glu 114 Est. kcal needs: 1949-8207 kcal | 20-25 kcal/kg Est. Pro needs: 80-96 g Pro | 1.0-1.2 g Pro PES STATEMENT: Inadequate oral intake (NI-2.1) related to loss of appetite | nausea | constipation as evidenced by pt interview | avg PO intake <25% x2meal INTERVENTION: Continue with current diet order of Clear Liquid diet. Add Ensure Clear (vary) to meals TID, for increased kcal intake. Provides 250 kcal and 8 g Pro per serving. Will continue to follow and reassess as pt needs and status change. MONITOR/EVALUATE: PO Intake; Plan of Care; Hydration Status; Weight Status; Lab Values Nadia Coelho, MS, RD, LD"
[2020-01-02] MEDS: PIPERACILLIN/TAZOBACTAM (BULK) 4.5 GM in NS (IVPB) 100 ML IV SCH ×2 (16:11→23:59)
[2020-01-02 20:00] VITALS: BP 132/61
[2020-01-02] MEDS: ENOXAPARIN 40 MG/0.4 ML (LOVENOX) SYR SC SCH (20:40)
[2020-01-02 23:55] VITALS: BP 152/80
[2020-01-03] MEDS: KETOROLAC 15 MG/ML VIAL IVP PRN ×3 (00:14→19:40)
[2020-01-03] MEDS: PROMETHAZINE INJ 25 MG/ML (PHENERGAN) AMP IVP PRN ×4 (01:06→22:02)
[2020-01-03] MEDS: HYDROmorphone 2 MG/ML VIAL (DILAUDID) IV PRN ×3 (01:15→18:44)
[2020-01-03 04:00] VITALS: BP 156/85
[2020-01-03] MEDS: HYDROcodone/APAP 7.5 MG/325 MG (LORTAB, LORCET PLUS) TABLET PO PRN ×2 (04:03→15:06)
[2020-01-03] MEDS: LACTATED RINGERS 1,000 ML IV SCH ×3 (05:05→21:39)
[2020-01-03 05:42] LABS: HEMOGLOBIN 10.7 G/DL (11.5-16.0); MEAN PLATELET VOLUME 11.3 FL (7.4-10.4); RED CELL DISTRIBUTION WIDTH 13.6 % (10.0-14.5); WHITE BLOOD COUNT 10.2 10^3/uL (4.3-11.0)
[2020-01-03 06:07] LABS: BUN/CREATININE RATIO 15; CALCIUM 9.1 MG/DL (8.5-10.1); CARBON DIOXIDE 21 MMOL/L (21-32); CHLORIDE 106 MMOL/L (98-107); CREATININE SERUM 0.88 MG/DL (0.60-1.30); GFR ESTIMATED > 60; GLUCOSE 137 MG/DL (70-105); POTASSIUM 4.2 MMOL/L (3.6-5.0); SODIUM 138 MMOL/L (135-145)
[2020-01-03 08:00] VITALS: BP 163/84
[2020-01-03] MEDS: PIPERACILLIN/TAZOBACTAM (BULK) 4.5 GM in NS (IVPB) 100 ML IV SCH ×2 (08:34→16:35)
[2020-01-03] MEDS: PANTOPRAZOLE 40 MG (PROTONIX) VIAL IV SCH ×2 (09:19→21:39)
[2020-01-03] MEDS: CATHETER FLUSH 10 ML SYR IV PRN ×2 (09:19→14:37)
[2020-01-03] MEDS: ONDANSETRON 4 MG/2 ML (SDV) Z0FRAN IV PRN ×2 (09:24→18:44)
--- NOTE | 2020-01-03 11:03 | Progress Note ---
Subjective Date Seen by a Provider: Jan 03, 2020 Time Seen by a Provider: 10:15 Subjective/Events-last exam Patient seen with Dr. Bruno. Patient reports doing some better. Has been tolerating more liquids and not needing pain medications as frequently. Does still report episodes of nausea. No BM or flatus yet. Patient reports she has not been ambulating other than to go to the bathroom. Denies any fever/chills. Objective Exam Vital Signs Date Time Temp Pulse Resp B/P (MAP) Pulse Ox O2 Delivery O2 Flow Rate FiO2 01/03/20 08:00 96 Room Air 01/03/20 08:00 36.0 51 20 163/84 (110) 99 Room Air 01/03/20 04:00 36.7 52 20 156/85 (108) 96 Room Air 01/02/20 23:55 36.8 63 20 152/80 (104) 98 Room Air 01/02/20 20:00 36.7 61 15 132/61 (84) 97 Room Air 01/02/20 20:00 96 Room Air 01/02/20 16:00 37.1 57 15 99 Room Air 01/02/20 12:07 36.1 58 20 160/83 (108) 99 Room Air I & O 01/03/20 07:00 Intake Total 3930 ml Output Total 1250 ml Balance 2680 ml Capillary Refill : Less Than 3 SecondsLess Than 3 Seconds General Appearance: No Apparent Distress, WD/WN Neck: Full Range of Motion, Normal Inspection, Non Tender Respiratory: Normal Breath Sounds, No Accessory Muscle Use, No Respiratory Distress Cardiovascular: Regular Rate, Rhythm, No Murmur Gastrointestinal: soft, tenderness (LUQ and epigastric region) Extremity: Normal Capillary Refill, Normal Inspection, Normal Range of Motion Neurologic/Psychiatric: Alert, Oriented x3 Skin: Normal Color, Warm/Dry Results Lab Laboratory Tests 01/03/20 05:06: White Blood Count 10.2, Red Blood Count 4.06L, Hemoglobin 10.7L, Hematocrit 34L, Mean Corpuscular Volume 83, Mean Corpuscular Hemoglobin 26, Mean Corpuscular Hemoglobin Concent 32, Red Cell Distribution Width 13.6, Platelet Count 287, Mean Platelet Volume 11.3H, Sodium Level 138, Potassium Level 4.2, Chloride Level 106, Carbon Dioxide Level 21, Anion Gap 11, Blood Urea Nitrogen 13, Creatinine 0.88, Estimat Glomerular Filtration Rate > 60, BUN/Creatinine Ratio 15, Glucose Level 137H, Calcium Level 9.1 Assessment/Plan Assessment/Plan Assess & Plan/Chief Complaint A 49-year-old female with colitis, which may be secondary to a viral etiology versus influenza versus ingestion of contaminated food or water. VSS WBC WNL Will continue with IV abx, pain, and nausea medications Continue clear liquids If patient does not continue to improve then will proceed with CT abd/pelvis with oral and IV contrast. Clinical Quality Measures AMI/AHF: ASA po Prior to arrival: No DVT/VTE Risk/Contraindication: Risk Factor Score Per Nursin RFS Level Per Nursing on Admit: 3=LOLITA Argueta APRN Jan 03, 2020 11:03
--- NOTE | 2020-01-03 11:46 | Consultation - Hospitalist ---
[facility] 01/03/20 1146: HPI History of Present Illness: HPI/Chief Complaint CC: Severe Epigastric Pain HPI: Ms. Brunson is a 49 yo WF who was admitted due to extreme epigastric pain that radiated to her left arm. 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 She mentioned extreme lethargy and sleeping most of the day. Then on Sunday morning at 3 am, she severe pain which she rated as a 10/10. Since that time she has been consistently nauseated, and continuously in discomfort, rating it anywhere from 5-7/10 and getting as bad as a 9. She states that her nausea would cause her to have dry heaves, but has been under control after administration of 4 different anti-emetics + 4 different pain medications. She has a history of Rou-En-Y surgery and a cholecystectomy, and is very adamant about taking her necessary vitamins. She denies any hematemesis, hematochezia, melena, or radiating pain. She states that her one bowel movement occurred yesterday after a soap enema, but has not passed gas. She states that she is still able to pee, but doesn't have the urge to go. She is currently being treat with Zosyn for colitis. Source: patient, family Date Seen 01/03/20 Attending Physician Juan Alberto Bruno MD PCP Tamie Jacob MD Referring Physician Date of Admission Jan 02, 2020 at 09:30 Home Medications & Allergies Home Medications Reviewed patient Home Medication Reconciliation performed by pharmacy medication reconciliations missile tracking technician and/or nursing. Patients Allergies have been reviewed. Allergies Allergies Coded Allergies codeine (Verified Allergy, Unknown, 12/31/19) Past Mltxqym-Jfblmd-Fievfu Hx Past Med/Social Hx: Reviewed Nursing Past Med/Soc Hx Patient Social History Number of Children: 3 Number of living children: 3 Employed/Student: employed Alcohol Use: Regular Use (3-4 alcoholic drinks per week) Alcohol Beverage of Choice: Other Smoking Status: Never a Smoker 2nd Hand Smoke Exposure: No Physical Abuse Screen: No Sexual Abuse: No Recent Foreign Travel: No Contact w/other who traveled: No Recent Hopitalizations: No Recent Infectious Disease Expo: No Immunizations Up To Date Date of Influenza Vaccine: Jul 31, 2019 Seasonal Allergies Seasonal Allergies: No Past Medical History Surgeries: Abdominal (Ifeoma-n-y Gastric Bypass for weight loss), Gallbladder Currently Using CPAP: No Currently Using BIPAP: No : No Reproductive: No Sexually Transmitted Disease: No HIV/AIDS: No Female Reproductive Disorders: Denies Are Your Blood Sugars Over 250: No Loss of Vision: Denies Hearing Impairment: Denies History of Blood Disorders: No Adverse Reaction to Blood Leavitt: No Family History Heart Disease (VSD - son), Cancer (B Cell Lymphoma - Father ), Diabetes (Father), GI Disease (IBS - Brother ), Hypertension (Father), Renal Disease (ESRD - Father ), Other Conditions/Hx (Gout - Father/son) Review of Systems Constitutional: No no symptoms reported, No see HPI; chills; No diaphoresis, No dizziness; fever, malaise; No weakness, No weight gain, No weight loss, No other EENTM: No see HPI, No no symptoms reported, No ear discharge, No hearing loss, No ear pain, No blurred vision, No double vision, No eye pain, No tearing, No vision loss, No dental problems, No hoarseness, No mouth pain, No mouth swelling, No epistaxis, No nose congestion, No nose pain, No throat pain, No throat swelling, No other Respiratory: No no symptoms reported, No see HPI, No cough, No dyspnea on exertion, No hemoptysis, No orthopnea, No phlegm, No short of breath, No stridor, No wheezing, No other Cardiovascular: No no symptoms reported, No see HPI, No chest pain, No edema, No Hx of Intervention, No palpitations, No syncope, No vascular heart diseas, No other Gastrointestinal: see HPI, constipation, loss of appetite, nausea, other (Epigastric Pain) Genitourinary: No no symptoms reported, No see HPI, No decreased output, No discharge, No dysuria, No frequency, No hematuria, No hesitancy, No incontinence, No nocturia, No pain, No other : No Control/STD Prophylaxis: BC Pills Musculoskeletal: No no symptoms reported, No see HPI, No back pain, No gout, No joint pain, No joint swelling, No muscle pain, No muscle stiffness, No muscle cramps, No muscle twitching, No muscle weakness, No neck pain, No other Skin: No no symptoms reported, No see HPI, No change in color, No change in hair/nails, No dryness, No hx of skin cancer, No lesions, No lumps, No pruritus, No rash, No other Psychiatric/Neurological: Denies No Symptoms Reported, Denies See HPI, Denies Anxiety, Denies Depressed, Denies Emotional Problems, Denies Headache, Denies Numbness, Denies Paresthesia, Denies Pre-Existing Deficit, Denies Seizure, Denies Tingling, Denies Tremors, Denies Weakness, Denies Other Physical Exam Physical Exam Vital Signs Vital Signs - First Documented 12/31/19 12/31/19 05:50 09:40 Temp 36.5 Pulse 70 Resp 16 B/P (MAP) 106/79 (88) Pulse Ox 98 O2 Delivery Room Air Capillary Refill : Less Than 3 SecondsLess Than 3 Seconds Height, Weight, BMI Height: '" Weight: lbs. oz. kg; 26.65 BMI Method: General Appearance: WD/WN, Mild Distress Eyes: Bilateral Eye Normal Inspection, Bilateral Eye PERRL, Bilateral Eye EOMI HEENT: PERRL/EOMI Neck: Full Range of Motion, Normal Inspection, Non Tender Respiratory: Chest Non Tender, Lungs Clear, Normal Breath Sounds, No Accessory Muscle Use, No Respiratory Distress Cardiovascular: Regular Rate, Rhythm, No Edema, No Gallop, No JVD, No Murmur, Normal Peripheral Pulses Gastrointestinal: Normal Bowel Sounds, No Organomegaly, No Pulsatile Mass, Soft, Tenderness (Epigastrium ) Extremity: Normal Capillary Refill, Normal Inspection, Normal Range of Motion, Non Tender, No Calf Tenderness, No Pedal Edema Neurologic/Psychiatric: Alert, Oriented x3, No Motor/Sensory Deficits, Normal Mood/Affect Skin: Normal Color, Warm/Dry Lymphatic: No Adenopathy Results Results/Procedures Labs Laboratory Tests 01/02/20 05:15 01/03/20 05:06 Patient resulted labs reviewed. Imaging: Reviewed Imaging Films, Reviewed Imaging Report Assessment/Plan Assessment and Plan Assess & Plan/Chief Complaint Colitis: - Continue Dosage of Zosyn - Continue anti-emetic regimen - Continue pain med PRN - IVF 120 mL/hr - Continue Protonix - No treatment for elevated BP or elevated Sugar at this time. - Progress patient to solid diet and see how it is tolerated Clinical Quality Measures AMI/AHF: ASA po Prior to arrival: No DVT/VTE Risk/Contraindication: Risk Factor Score Per Nursin RFS Level Per Nursing on Admit: 3=High TIMOTEO PATEL MD 01/03/20 1304: HPI Referring Physician Dr Bruno Past Xkxmufx-Zffcff-Xknjxx Hx Past Med/Social Hx: Reviewed Nursing Past Med/Soc Hx Assessment/Plan Assessment and Plan Assess & Plan/Chief Complaint Pt admitted for colitis under the care of Dr Bruno. I am consulted for medical management. Pt is improving today and was able to tolerate her breakfast without nausea or vomiting. She reports overall her symptoms are improving but she is still concerned that she has the flu. I agree with aggressive antiemetics as already ordered. Continue pain management per primary. Continue Zosyn for empiric treatment of infectious colitis. No indication for TPN at this point. I will round prn. Supervisory-Addendum Brief Verification & Attestation Participated in pt care: history, MDM, physical Personally performed: exam, history, MDM, supervision of care Care discussed with: Medical Student Procedures: n/a Results interpretation: Verified all documentation Verification and Attestation of Medical Student E/M Service A medical student performed and documented this service in my presence. I reviewed and verified all information documented by the medical student and made modifications to such information, when appropriate. I personally performed the physical exam and medical decision making. Timoteo Patel, Jan 03, 2020,13:04 [facility] Jan 03, 2020 11:46 TIMOTEO PATEL MD Jan 03, 2020 13:04
[2020-01-03 12:00] VITALS: BP 162/88
[2020-01-03] MEDS: fentaNYL INJECTION 100 MCG/2 ML AMP IV PRN ×2 (15:05→22:02)
[2020-01-03 16:00] VITALS: BP 164/82
[2020-01-03] MEDS: DEXAMETHASONE 4 MG/ML SDV (DECADRON) IV PRN (18:45)
[2020-01-03 20:00] VITALS: BP 142/61
[2020-01-03] MEDS: ENOXAPARIN 40 MG/0.4 ML (LOVENOX) SYR SC SCH (21:40)
[2020-01-04] VITALS: BP 170/77
[2020-01-04] MEDS: PIPERACILLIN/TAZOBACTAM (BULK) 4.5 GM in NS (IVPB) 100 ML IV SCH ×4 (00:31→23:45)
[2020-01-04] MEDS: HYDROmorphone 2 MG/ML VIAL (DILAUDID) IV PRN ×3 (01:32→20:08)
[2020-01-04 04:00] VITALS: BP 141/72
[2020-01-04] MEDS: ONDANSETRON 4 MG/2 ML (SDV) Z0FRAN IV PRN ×2 (05:54→23:44)
[2020-01-04 07:57] VITALS: BP 188/88
[2020-01-04] MEDS: PANTOPRAZOLE 40 MG (PROTONIX) VIAL IV SCH ×2 (09:10→20:07)
[2020-01-04] MEDS: LACTATED RINGERS 1,000 ML IV SCH ×4 (09:19→23:45)
--- NOTE | 2020-01-04 10:00 | Progress Note ---
Subjective Date Seen by a Provider: Jan 04, 2020 Time Seen by a Provider: 09:30 Subjective/Events-last exam Patient seen with Dr. Bruno. Patient reports still improving but slowly. Still having nausea and abdominal pain in the LUQ and epigastric area. Tolerating more of a diet. Starting to ambulate some. No BM or flatus yet. No fever/chills. Objective Exam Vital Signs Date Time Temp Pulse Resp B/P (MAP) Pulse Ox O2 Delivery O2 Flow Rate FiO2 01/04/20 08:02 98 Room Air 01/04/20 07:57 36.6 54 18 188/88 (121) 99 Room Air 01/04/20 04:00 36.9 50 16 141/72 (95) 98 Room Air 01/04/20 00:00 36.6 55 16 170/77 (108) 97 Room Air 01/03/20 20:00 98 Room Air 01/03/20 20:00 36.2 60 15 142/61 (88) 98 Room Air 01/03/20 18:44 35.6 01/03/20 16:00 35.6 57 15 164/82 (109) 99 Room Air 01/03/20 15:40 36.1 01/03/20 15:40 36.1 01/03/20 15:06 36.1 01/03/20 13:10 36.1 01/03/20 12:40 36.1 01/03/20 12:00 36.1 64 20 162/88 (112) 99 Room Air I & O 01/04/20 07:00 Intake Total 2137 ml Output Total 1650 ml Balance 487 ml Capillary Refill : Less Than 3 SecondsLess Than 3 Seconds General Appearance: No Apparent Distress, WD/WN Neck: Full Range of Motion, Normal Inspection, Supple Respiratory: Normal Breath Sounds, No Accessory Muscle Use, No Respiratory Distress Cardiovascular: Regular Rate, Rhythm, No Murmur Gastrointestinal: soft, tenderness (LUQ and Epigastric area) Extremity: Normal Capillary Refill, Normal Inspection, Normal Range of Motion Neurologic/Psychiatric: Alert, Oriented x3 Skin: Normal Color, Warm/Dry Results Lab Microbiology 01/03/20 Influenza Types A,B Antigen (JEAN) - Final, Complete Assessment/Plan Assessment/Plan Assess & Plan/Chief Complaint A 49-year-old female with colitis, which may be secondary to a viral etiology versus influenza versus ingestion of contaminated food or water. VSS WBC WNL Will continue with IV abx, pain, and nausea medications Diet advanced and starting to tolerate more food. Will continue to monitor. If patient does not continue to improve then will proceed with CT abd/pelvis with oral and IV contrast. Clinical Quality Measures AMI/AHF: ASA po Prior to arrival: No DVT/VTE Risk/Contraindication: Risk Factor Score Per Nursin RFS Level Per Nursing on Admit: 3=High LOLITA WASHBURN PLUMBING INSTRUCTOR Jan 04, 2020 10:00
[2020-01-04] MEDS: PROMETHAZINE INJ 25 MG/ML (PHENERGAN) AMP IVP PRN ×2 (11:58→20:08)
[2020-01-04] MEDS: fentaNYL INJECTION 100 MCG/2 ML AMP IV PRN (11:58)
[2020-01-04 15:54] VITALS: BP 151/85
[2020-01-04] MEDS: HYDROcodone/APAP 7.5 MG/325 MG (LORTAB, LORCET PLUS) TABLET PO PRN ×2 (16:12→23:44)
[2020-01-04] MEDS: KETOROLAC 15 MG/ML VIAL IVP PRN (18:51)
[2020-01-04] MEDS: ENOXAPARIN 40 MG/0.4 ML (LOVENOX) SYR SC SCH (20:07)
[2020-01-05] VITALS: BP 149/68
[2020-01-05] MEDS: KETOROLAC 15 MG/ML VIAL IVP PRN ×3 (03:15→18:02)
[2020-01-05] MEDS: PROMETHAZINE INJ 25 MG/ML (PHENERGAN) AMP IVP PRN ×2 (03:15→13:40)
[2020-01-05] MEDS: PIPERACILLIN/TAZOBACTAM (BULK) 4.5 GM in NS (IVPB) 100 ML IV SCH ×2 (07:47→15:31)
[2020-01-05] MEDS: PANTOPRAZOLE 40 MG (PROTONIX) TAB PO SCH ×2 (07:47→20:41)
[2020-01-05] MEDS: HYDROcodone/APAP 7.5 MG/325 MG (LORTAB, LORCET PLUS) TABLET PO PRN ×3 (07:51→18:02)
[2020-01-05] MEDS: ONDANSETRON 4 MG/2 ML (SDV) Z0FRAN IV PRN ×3 (07:51→18:02)
[2020-01-05] MEDS: LACTATED RINGERS 1,000 ML IV SCH (07:57)
[2020-01-05 08:00] VITALS: BP 132/63
[2020-01-05] MEDS ORDERED: SCOPOLAMINE PATCH REMOVAL TP SCH (09:44)
[2020-01-05] MEDS ORDERED: DEXAMETHASONE 4 MG/ML SDV (DECADRON) ONE (11:28)
[2020-01-05] MEDS: DEXAMETHASONE 4 MG/ML SDV (DECADRON) IV PRN (11:36)
[2020-01-05] MEDS: HYDROmorphone 2 MG/ML VIAL (DILAUDID) IV PRN (13:40)
[2020-01-05] MEDS ORDERED: DIATRIZOATE MEGLUM/SODIUM 37% 120 ML (GASTROGRAFIN) PO ONE (15:45)
[2020-01-05] MEDS ORDERED: IOHEXOL 350 MG/ML 100 ML (OMNIPAQUE 350) VIAL IV ONE (15:45)
[2020-01-05] MEDS ORDERED: HOLD METFORMIN - RECEIVED CONTRAST 20 ML VIAL IV SCH (15:45)
[2020-01-05] MEDS ORDERED: NS 100 ML (IVPB) BAG IV ONE (15:45)
[2020-01-05 16:15] VITALS: BP 142/83
--- NOTE | 2020-01-05 16:33 | Diagnostic Imaging Report ---
PROCEDURE: CT abdomen and pelvis with and without contrast. TECHNIQUE: Precontrast acquisitions were acquired through the abdomen and pelvis. Multiple contiguous axial images were obtained through the abdomen and pelvis after the administration of intravenous contrast. Auto Exposure Controls were utilized during the CT exam to meet ALARA standards for radiation dose reduction. INDICATION: Abdominal pain with nausea and vomiting. History of colitis, epigastric pain. Surgical history includes bariatric surgery. Cholecystectomy. COMPARISON: Comparison made with prior examination 12/31/2019. FINDINGS: The heart size is normal. There is some dependent atelectasis in lung bases. Liver is normal in size without focal lesions. Gallbladder surgically absent. There appears to be a few beads of air in the ducts which may reflect previous sphincterotomy. Spleen is normal. Pancreas and adrenal glands are unremarkable. Kidneys are normal. There are postsurgical changes about the stomach. Aorta is nonaneurysmal. There is persistent inflammatory changes about the descending colon as well as some fluid in the left paracolic gutter. There has been interval development of some diffuse subcutaneous edema suspect for anasarca. There is no free air. Bladder is normal. There is some trace free pelvic fluid. There is no pelvic mass or adenopathy. Bladder is normal. There are mild degenerative changes in the spine. IMPRESSION: Persistent mild inflammatory changes about the descending colon with some free fluid in the left paracolic gutter. Findings remain suspect for subacute colitis. Interval development of some subcutaneous edema suspect for anasarca. Recommend clinical correlation. No other acute abnormality in the abdomen or pelvis. Dictated by: Dictated on workstation # [id number]
--- NOTE | 2020-01-05 18:13 | Progress Note ---
Subjective Date Seen by a Provider: Jan 05, 2020 Time Seen by a Provider: 16:00 Subjective/Events-last exam doing better. had BM. tolerating diet. had episode sharp pain this morning. repeat CT improved. Objective Exam Vital Signs Date Time Temp Pulse Resp B/P (MAP) Pulse Ox O2 Delivery O2 Flow Rate FiO2 01/05/20 16:15 37.2 73 20 142/83 (102) 96 Room Air 01/05/20 08:00 37.2 67 18 132/63 (86) 95 Room Air 01/05/20 07:58 Room Air 01/05/20 00:00 36.5 53 18 149/68 (95) 98 Room Air 01/04/20 20:15 Room Air 01/04/20 18:51 36.2 I & O 01/05/20 07:00 Intake Total 3340 ml Output Total 2400 ml Balance 940 ml Capillary Refill : Less Than 3 SecondsLess Than 3 Seconds General Appearance: No Apparent Distress HEENT: PERRL/EOMI Neck: Full Range of Motion Respiratory: Chest Non Tender, Lungs Clear, Normal Breath Sounds Cardiovascular: Regular Rate, Rhythm Gastrointestinal: normal bowel sounds, soft Extremity: Normal Capillary Refill Neurologic/Psychiatric: Alert, Oriented x3 Skin: Normal Color Lymphatic: No Adenopathy Results Lab Microbiology 01/03/20 Influenza Types A,B Antigen (JEAN) - Final, Complete Assessment/Plan Assessment/Plan Assess & Plan/Chief Complaint nausea/vomiting likely secondary gastritis and segmental colitis. cont abx. ambulate. cont PPI BID. advance diet. Clinical Quality Measures AMI/AHF: ASA po Prior to arrival: No DVT/VTE Risk/Contraindication: Risk Factor Score Per Nursin RFS Level Per Nursing on Admit: 3=High KIRA ESQUIVEL MD Jan 05, 2020 18:13
[2020-01-05] MEDS: ENOXAPARIN 40 MG/0.4 ML (LOVENOX) SYR SC SCH (20:41)
[2020-01-06 00:28] VITALS: BP 164/102
[2020-01-06] MEDS: HYDROmorphone 2 MG/ML VIAL (DILAUDID) IV PRN ×3 (00:55→10:18)
[2020-01-06] MEDS: PIPERACILLIN/TAZOBACTAM (BULK) 4.5 GM in NS (IVPB) 100 ML IV SCH ×3 (00:56→18:26)
[2020-01-06] MEDS: CATHETER FLUSH 10 ML SYR IV SCH ×4 (00:56→22:00)
[2020-01-06 04:00] VITALS: BP 135/62
[2020-01-06] MEDS: HYDROcodone/APAP 7.5 MG/325 MG (LORTAB, LORCET PLUS) TABLET PO PRN ×4 (04:31→21:53)
[2020-01-06 08:00] VITALS: BP 130/68
[2020-01-06] MEDS: PANTOPRAZOLE 40 MG (PROTONIX) TAB PO SCH ×2 (08:21→20:41)
[2020-01-06] MEDS: ONDANSETRON 4 MG/2 ML (SDV) Z0FRAN IV PRN (08:21)
[2020-01-06] MEDS: fentaNYL INJECTION 100 MCG/2 ML AMP IV PRN (08:33)
[2020-01-06] MEDS: PROMETHAZINE INJ 25 MG/ML (PHENERGAN) AMP IVP PRN (12:47)
--- NOTE | 2020-01-06 13:09 | Progress Note ---
Subjective Date Seen by a Provider: Jan 06, 2020 Time Seen by a Provider: 12:00 Subjective/Events-last exam was doing well however states crampy left upper abd crampy pain. mild nausea, no vomiting. still able to tolerated liquids and small amounts of food. no fever/chills. Objective Exam Vital Signs Date Time Temp Pulse Resp B/P (MAP) Pulse Ox O2 Delivery O2 Flow Rate FiO2 01/06/20 10:18 36.6 01/06/20 09:05 36.6 01/06/20 08:33 36.6 01/06/20 08:00 Room Air 01/06/20 08:00 36.6 76 20 130/68 (88) 96 Room Air 01/06/20 04:00 37.0 66 18 135/62 (86) 95 Room Air 01/06/20 00:28 36.7 76 16 164/102 (122) 94 Room Air 01/05/20 20:00 Room Air 01/05/20 16:15 37.2 73 20 142/83 (102) 96 Room Air I & O 01/06/20 07:00 Intake Total 4390 ml Output Total 2100 ml Balance 2290 ml Capillary Refill : Less Than 3 SecondsLess Than 3 Seconds General Appearance: No Apparent Distress HEENT: PERRL/EOMI Neck: Full Range of Motion Respiratory: Chest Non Tender, Lungs Clear, Normal Breath Sounds Cardiovascular: Regular Rate, Rhythm Gastrointestinal: normal bowel sounds, soft, tenderness Extremity: Normal Capillary Refill Neurologic/Psychiatric: Alert, Oriented x3 Skin: Normal Color Lymphatic: No Adenopathy Results Lab Microbiology 01/03/20 Influenza Types A,B Antigen (JEAN) - Final, Complete Assessment/Plan Assessment/Plan Assess & Plan/Chief Complaint nausea/vomiting likely secondary gastritis and segmental colitis. cont abx. ambulate. cont PPI BID. advance diet. recurrent abd pain today. cont current care and once pain controlled, tolerating liquids and ambulating well will, d/c home. Clinical Quality Measures AMI/AHF: ASA po Prior to arrival: No DVT/VTE Risk/Contraindication: Risk Factor Score Per Nursin RFS Level Per Nursing on Admit: 3=High KIRA ESQUIVEL MD Jan 06, 2020 13:09
[2020-01-06 16:00] VITALS: BP 142/79
[2020-01-06] MEDS: METOCLOPRAMIDE INJ 10 MG/2 ML (REGLAN) IVP PRN (18:36)
[2020-01-06] MEDS: ENOXAPARIN 40 MG/0.4 ML (LOVENOX) SYR SC SCH (20:42)
[2020-01-07] VITALS: BP 128/80
[2020-01-07] MEDS: PIPERACILLIN/TAZOBACTAM (BULK) 4.5 GM in NS (IVPB) 100 ML IV SCH (01:57)
[2020-01-07] MEDS: HYDROcodone/APAP 7.5 MG/325 MG (LORTAB, LORCET PLUS) TABLET PO PRN ×4 (01:58→15:50)
[2020-01-07] MEDS: CATHETER FLUSH 10 ML SYR IV SCH ×3 (05:11→20:13)
[2020-01-07 08:00] VITALS: BP 141/83
[2020-01-07] MEDS: PANTOPRAZOLE 40 MG (PROTONIX) TAB PO SCH ×2 (08:39→20:13)
[2020-01-07] MEDS: PROMETHAZINE INJ 25 MG/ML (PHENERGAN) AMP IVP PRN (08:39)
[2020-01-07] MEDS: ONDANSETRON 4 MG/2 ML (SDV) Z0FRAN IV PRN (10:00)
--- NOTE | 2020-01-07 11:03 | NUR ---
"RD ASSESSMENT PMHx: no significant PMH. SurgHx: lap Ifeoma-en-Y 15 years ago. Current admit: colitis PT INTERACTION: Pt was awake and pleasant during nutrition follow-up. Pt states eating poorly since last assessment. Note pt refused all meals on 01/06, per chart review. Per Angela ALLEN, pt has been tolerating broth and jello well. Pt states recurring episodes of nausea and has difficulty with the smell of food at this time. Note last BM was 01/06 and pt not currently on bowel regimen per chart review. ABNORMAL NUTRITION-RELATED LAB VALUES LOW: Pro 6.1; alb 3.1 HIGH: glu 137 Est. kcal needs: 4765-4846 kcal | 20-25 kcal/kg Est. Pro needs: 80-96 g Pro | 1.0-1.2 g Pro/kg PES STATEMENT: Inadequate oral intake (NI-2.1) related to nausea | loss of appetite as evidenced by pt interview | pt refusing meals 01/06 INTERVENTION: Contacted Dr. Bruno about current diet. Switched current diet from DYS3 Advanced/Ground Meat to Clear Liquid diet for pt tolerance. Add Ensure Clear (vary) to meals TID, for increased kcal intake. Provides 250 kcal and 8 g Pro per serving. Will continue to follow and reassess as pt needs and status change. MONITOR/EVALUATE: PO Intake; Plan of Care; Hydration Status; Weight Status; Lab Values Nadia Coelho, MS, RD, LD"
[2020-01-07 16:00] VITALS: BP 146/86
--- NOTE | 2020-01-07 17:20 | Progress Note ---
Subjective Date Seen by a Provider: Jan 07, 2020 Time Seen by a Provider: 17:00 Subjective/Events-last exam abd pain improved however still having nausea/vomiting. no fever/chills. no hematamesis/coffee ground emesis. having BM's. Objective Exam Vital Signs Date Time Temp Pulse Resp B/P (MAP) Pulse Ox O2 Delivery O2 Flow Rate FiO2 01/07/20 08:00 98 Room Air 01/07/20 08:00 36.8 65 18 141/83 (102) 98 Room Air 01/07/20 00:00 37.0 60 18 128/80 (96) 97 Room Air 01/06/20 20:00 Room Air 01/06/20 18:15 36.8 I & O 01/07/20 07:00 Intake Total 2500 ml Output Total 1500 ml Balance 1000 ml Capillary Refill : Less Than 3 SecondsLess Than 3 Seconds General Appearance: No Apparent Distress HEENT: PERRL/EOMI Neck: Full Range of Motion Respiratory: Chest Non Tender, Lungs Clear, Normal Breath Sounds Cardiovascular: Regular Rate, Rhythm Gastrointestinal: normal bowel sounds, non tender, soft Extremity: Normal Capillary Refill Neurologic/Psychiatric: Alert, Oriented x3 Skin: Normal Color Lymphatic: No Adenopathy Results Lab Microbiology 01/03/20 Influenza Types A,B Antigen (JEAN) - Final, Complete Assessment/Plan Assessment/Plan Assess & Plan/Chief Complaint nausea/vomiting likely secondary gastritis and segmental colitis. having recurrent nasea/vomiting. abd pain improved. will proceed with an EGD tomorrow and if this is normal then proceed with SBFT. Clinical Quality Measures AMI/AHF: ASA po Prior to arrival: No DVT/VTE Risk/Contraindication: Risk Factor Score Per Nursin RFS Level Per Nursing on Admit: 3=High KIRA ESQUIVEL MD Jan 07, 2020 17:19
[2020-01-07] MEDS ORDERED: FUROSEMIDE 40 MG/4 ML INJ (LASIX) IVP NR (17:45)
[2020-01-07] MEDS: ENOXAPARIN 40 MG/0.4 ML (LOVENOX) SYR SC SCH (20:13)
[2020-01-07] MEDS: fentaNYL INJECTION 100 MCG/2 ML AMP IV PRN (20:20)
[2020-01-08] VITALS (14 sets, daily range): BP systolic 122–188; BP diastolic 62–98
[2020-01-08] MEDS: HYDROmorphone 2 MG/ML VIAL (DILAUDID) IV PRN (00:16)
[2020-01-08] MEDS: fentaNYL INJECTION 100 MCG/2 ML AMP IV PRN ×7 (04:49→20:31)
[2020-01-08] MEDS: PROMETHAZINE INJ 25 MG/ML (PHENERGAN) AMP IVP PRN ×2 (04:50→20:31)
[2020-01-08 05:18] LABS: HEMOGLOBIN 10.3 G/DL (11.5-16.0); RED CELL DISTRIBUTION WIDTH 13.3 % (10.0-14.5); WHITE BLOOD COUNT 8.3 10^3/uL (4.3-11.0)
[2020-01-08] MEDS: CATHETER FLUSH 10 ML SYR IV SCH ×3 (06:30→22:00)
[2020-01-08] MEDS: ONDANSETRON 4 MG/2 ML (SDV) Z0FRAN IV PRN ×2 (07:51→17:44)
--- NOTE | 2020-01-08 08:00 | NUR ---
Patient in need of IV pain medicine and anti-nausea medication. When Flush was administered before medications, IV infiltrated. Patient complained of pain and hard knot was felt at IV site. Warm compress applied. Order obtained from Dr. Bruno to insert Midline. Before Midline was able to be inserted, Surgical team came to take patient for scope. Midline nurse notified of patient location.
[2020-01-08] MEDS ORDERED: NS IV 500 ML 500 ML ONE (08:59)
[2020-01-08] MEDS ORDERED: LIDOCAINE JELLY 2% 6 ML SYRINGE ONE (08:59)
[2020-01-08] MEDS ORDERED: HURRICAINE EXT TUBE (BENZOCAINE) ONE (08:59)
[2020-01-08] MEDS ORDERED: fentaNYL INJECTION 100 MCG/2 ML AMP ONE (08:59)
[2020-01-08] MEDS ORDERED: MIDAZOLAM 5 MG/5 ML (VERSED) VIAL ONE ×2 (08:59)
--- NOTE | 2020-01-08 08:59 | Conscious Sedation/ASA ---
Conscious Sedation Pre-Proced Time 08:00 ASA Score 2 For ASA 3 and 4: Consider anesthesia and medical clearance. Also, for patients with a history of failed moderate sedation consider anesthesia. Airway Lungs Heart ASA score ASA 1: a normal healthy patient ASA 2: a patient with a mild systemic disease (mid diabetes, controlled hypertension, obesity ASA 3: a patient with a severe systemic disease that limits activity (angina, COPD, prior Myocardial infarction) ASA 4: a patient with an incapacitating disease that is a constant threat to life (CHF, renal failure) ASA 5: a moribund patient not expected to survive 24 hrs. (ruptured aneurysm) ASA 6: a declared brain- patient whose organs are being harvested. For emergent operations, add the letter E after the classification Mallampati Classification Grade 2 Sedation Plan Analgesia, Amnesia, Plan communicated to team members, Discussed options with patient/fam, Discussed risks with patient/fam The patient is an appropriate candidate to undergo the planned procedure, sedation, and anesthesia. The patient immediately re-assessed prior to indication. KIRA ESQUIVEL MD Jan 08, 2020 08:58
--- NOTE | 2020-01-08 09:00 | Progress Note-Pre Operative ---
Pre-Operative Progress Note H&P Reviewed The H&P was reviewed, patient examined and no changes noted. Date Seen by Provider: Jan 08, 2020 Time Seen by Provider: 08:00 Date H&P Reviewed: Jan 08, 2020 Time H&P Reviewed: 08:00 Pre-Operative Diagnosis: persistent nasea/vomiting KIRA ESQUIVEL MD Jan 08, 2020 09:00
--- NOTE | 2020-01-08 09:02 | Progress Note-Pre Operative ---
Pre-Operative Progress Note H&P Reviewed The H&P was reviewed, patient examined and no changes noted. Date Seen by Provider: Jan 08, 2020 Time Seen by Provider: 08:00 Date H&P Reviewed: Jan 08, 2020 Time H&P Reviewed: 08:00 Pre-Operative Diagnosis: peristent nausea/vomiting KIRA ESQUIVEL MD Jan 08, 2020 09:02
[2020-01-08] MEDS: MIDAZOLAM 5 MG/5 ML (VERSED) VIAL IV PRN ×2 (09:08→09:10)
--- NOTE | 2020-01-08 09:50 | Progress Note-Post Operative ---
Post-Operative Progess Note Surgeon (s)/Lens Assorter (s) Surgeon KIRA ESQUIVEL MD Lens Assorter: none Pre-Operative Diagnosis peristent nausea/vomiting Post-Operative Diagnosis reflux esophagitis(stage 2), mild gastritis, gastro-jejunal stricture, patent ramy limb. Procedure & Operative Findings Date of Procedure 01/08/20 Procedure Performed/Findings EGD with bx and balloon dilatation. Anesthesia Type cs Estimated Blood Loss Estimated blood loss (mL): minimal Specimens/Packing Specimens Removed gastric pouch, ge jxn KIRA ESQUIVEL MD Jan 08, 2020 09:50
[2020-01-08] MEDS: PANTOPRAZOLE 40 MG (PROTONIX) TAB PO SCH ×2 (10:11→20:30)
[2020-01-08] MEDS ORDERED: NS IV 500 ML 500 ML IV PRN (10:37)
--- NOTE | 2020-01-08 10:38 | OPERATIVE REPORT ---
DATE OF SERVICE: 01/08/2020 ATTENDING PRIMARY CARE PHYSICIAN: Dr. Tamie Jacob. PREOPERATIVE DIAGNOSES: Persistent nausea and vomiting. POSTOPERATIVE DIAGNOSES: Reflux esophagitis stage II, gastrojejunal stricture. PROCEDURE: EGD with biopsy and balloon dilatation. SURGEON: Kira Esquivel MD. ANESTHESIA: Conscious sedation. ESTIMATED BLOOD LOSS: Minimal. FINDINGS: Reflux esophagitis stage II, gastrojejunal stricture. DISPOSITION: The patient tolerated the procedure well. INDICATIONS: The patient is a 49-year-old female who presented to [facility] with epigastric pain as well as some pain in the lower abdominal quadrants. She had reported mild fevers and chills and general malaise and flu-like symptoms. A CT scan was performed, which did show colitis of the descending colon. She did not report any major issues with diarrhea nor constipation as well as no red blood per rectum nor any dark tarry stools. She is status post Ifeoma-en-Y gastric bypass in 2004 at [facility]. She was admitted and medically treated. She was started on antinausea medications, which eventually did help; however, she had reoccurrence of nausea and vomiting. She underwent a repeat CT scan, which did show improvement of the colitis as well as no obstruction. Her labs are normal and she was also afebrile. She continues to have persistent nausea and vomiting and we will proceed with EGD. DESCRIPTION OF PROCEDURE: The patient was brought to the endoscopy suite, laid in the left lateral decubitus position with head slightly elevated. After adequate IV pain and sedative medications and conscious sedation anesthesia, the mouthpiece was applied. The endoscope was then placed in the mouth, visualizing the pharynx and hypopharyngeal region. Vocal cords, epiglottis and vallecula identified and appeared to be normal. The endoscope was then gently intubated at esophageal opening and esophagus insufflated. The endoscope was then advanced to the first, second and third portion of the esophagus at the level of the GE junction, a reflux esophagitis stage II identified. There were no ulcers or strictures identified in this region. A biopsy was taken using forceps with visualization of good hemostasis. The endoscope was then advanced into the gastric pouch where there was a mild gastritis noted. 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 The endoscope was able to go through the stricture and the afferent limb appeared normal as well as the efferent limb was widely patent with no strictures or ulcerations or distal obstructions. A biopsy was then taken of the gastric pouch with forceps with visualization of good hemostasis. We then proceeded with dilatation of the gastrojejunal stricture. The balloon was placed into the jejunal limb and pulled back to the area of the stricture and first dilated to 2 atmospheres of pressure with no resistance. We then proceeded to 4 atmospheres of pressure with moderate resistance, which equals approximately 19 mm in luminal diameter. We left this in place for approximately 60 seconds and then desufflated the balloon. The balloon was then removed with visualization of good hemostasis as well as no mucosal tears. The endoscope was then slowly withdrawn while taking a second look and suctioning of residual air with no additional findings. The patient tolerated the procedure well. We will start her back on clear liquid diet and continue her on PPI acid flatwork finisher hand as well as Carafate. When she is tolerating liquids and soft foods and has adequate pain control and is ambulating well, we will discharge her home. Eventually, she will need a colonoscopy; however, she will also need to have referral to bariatric surgical supplies sterilizer that does do revisional surgery, status post Ifeoma-en-Y gastric bypass to revise the gastrojejunal strictured anastomosis. Job ID: [id number] DocumentID: [id number] Dictated Date: 01/08/2020 09:57:24 Insecticide Supervisor Date: 01/08/2020 10:38:23 Dictated By: KIRA ESQUIVEL MD MTDD
[2020-01-08] MEDS ORDERED: fentaNYL INJECTION 100 MCG/2 ML AMP IVP ONE (10:45)
[2020-01-08] MEDS ORDERED: HURRICAINE EXT TUBE (BENZOCAINE) XX PRN (10:45)
[2020-01-08] MEDS ORDERED: FUROSEMIDE 40 MG/4 ML INJ (LASIX) IVP NR (17:00)
[2020-01-08] MEDS: ENOXAPARIN 40 MG/0.4 ML (LOVENOX) SYR SC SCH (20:28)
[2020-01-09] MEDS: ONDANSETRON 4 MG/2 ML (SDV) Z0FRAN IV PRN (02:01)
[2020-01-09] MEDS: fentaNYL INJECTION 100 MCG/2 ML AMP IV PRN ×2 (02:01→05:38)
[2020-01-09] MEDS: PROMETHAZINE INJ 25 MG/ML (PHENERGAN) AMP IVP PRN ×2 (05:38→08:47)
[2020-01-09] MEDS: CATHETER FLUSH 10 ML SYR IV SCH ×2 (06:25→14:07)
[2020-01-09 08:00] VITALS: BP 125/73
[2020-01-09] MEDS: PANTOPRAZOLE 40 MG (PROTONIX) TAB PO SCH (08:42)
[2020-01-09] MEDS: HYDROcodone/APAP 7.5 MG/325 MG (LORTAB, LORCET PLUS) TABLET PO PRN (10:35)
--- NOTE | 2020-01-09 12:50 | Progress Note ---
Subjective Date Seen by a Provider: Jan 09, 2020 Time Seen by a Provider: 10:00 Subjective/Events-last exam doing ok. no abd pain. tolerating clears. no nausea/vomiting, no fever/chills. Objective Exam Vital Signs Date Time Temp Pulse Resp B/P (MAP) Pulse Ox O2 Delivery O2 Flow Rate FiO2 01/09/20 08:00 37.2 75 18 125/73 (90) 99 Room Air 01/09/20 08:00 99 Room Air 01/09/20 06:25 37.0 01/09/20 05:38 37.0 01/09/20 02:31 37.0 01/09/20 02:01 37.0 01/08/20 23:58 37.0 65 18 122/78 (93) 96 Room Air 01/08/20 21:00 37.3 01/08/20 20:31 37.3 01/08/20 20:00 98 Room Air 10.00 01/08/20 15:42 37.3 72 16 140/82 (101) 98 Room Air I & O 01/09/20 07:00 Intake Total 1320 ml Output Total 1850 ml Balance -530 ml Capillary Refill : Less Than 3 SecondsLess Than 3 Seconds General Appearance: No Apparent Distress HEENT: PERRL/EOMI Neck: Full Range of Motion Respiratory: Chest Non Tender, Lungs Clear, Normal Breath Sounds Cardiovascular: Regular Rate, Rhythm Gastrointestinal: normal bowel sounds, soft Extremity: Normal Capillary Refill Neurologic/Psychiatric: Alert, Oriented x3 Skin: Normal Color Lymphatic: No Adenopathy Results Lab Microbiology 01/03/20 Influenza Types A,B Antigen (JEAN) - Final, Complete Assessment/Plan Assessment/Plan Assess & Plan/Chief Complaint nausea/vomiting and segmental colitis secondary to gastro-jejunal stricture s/p balloon dilatation. continue with liquids and mechanically soft foods. will cont PO abx. f/u for OP colonoscopy as well as eventual referral to bariatric revisional human resources benefits specialist. Clinical Quality Measures AMI/AHF: ASA po Prior to arrival: No DVT/VTE Risk/Contraindication: Risk Factor Score Per Nursin RFS Level Per Nursing on Admit: 3=High KIRA ESQUIVEL MD Jan 09, 2020 12:50
--- OUTSIDE RECORDS SUMMARY | 2020-01-09 23:38 | XMS REPORT | Continuity of Care Document ---
Author Organization Unknown Address Unknown Phone Unavailable Allergies Active Description Code Type Severity Reaction Onset Reported/Identified Relationship to Patient Clinical Status Yes codeine [id number] Drug Allergy Unknown N/A 12/31/2019 Medications There is no data. Problems Date Dx Coded Attending Type Code Diagnosis Diagnosed By 01/08/2020 KIRA ESQUIVEL MD, Ot A05.9 BACTERIAL FOODBORNE INTOXICATION, UNSPEC 01/08/2020 KIRA ESQUIVEL MD, Ot A08.4 VIRAL INTESTINAL INFECTION, UNSPECIFIED 01/08/2020 KIRA ESQUIVEL MD, Ot J11.2 INFLUENZA DUE TO UNIDENTIFIED INFLUENZA 01/08/2020 KIRA ESQUIVEL MD, Ot Z98.84 BARIATRIC SURGERY STATUS Procedures There is no data. Results Test Result Range Complete blood count (CBC) with automate d white blood cell (WBC) differential - 12/31/19 05:55 Blood leukocytes automated count (number/volume) 12.6 10*3/uL 4.3-11.0 Blood erythrocytes automated count (number/volume) 5.08 10*6/uL 4.35-5.85 Venous blood hemoglobin measurement (mass/volume) 13.7 g/dL 11.5-16.0 Blood hematocrit (volume fraction) 43 % 35-52 Automated erythrocyte mean corpuscular volume 85 [ foz_us] 80-99 Automated erythrocyte mean corpuscular h emoglobin (mass per erythrocyte) 27 pg 25-34 Automated erythrocyte mean corpuscular h emoglobin concentration measurement (mass/volume) 32 g/dL 32-36 Automated erythrocyte distribution width ratio 13. 2 % 10.0- 14.5 Automated blood platelet count (count/volume) 296 10*3/uL 130-400 Automated blood platelet mean volume measurement 10.9 [foz_us] 7.4-10.4 Automated blood neutrophils/100 leukocytes 79 % 42-75 Automated blood lymphocytes/100 leukocytes 13 % 12-44 Blood monocytes/100 leukocytes 4 % 0-12 Automated blood eosinophils/100 leukocytes 3 % 0-10 Automated blood basophils/100 leukocytes 0 % 0-10 Blood neutrophils automated count (number/volume) 9.9 10*3 1.8-7.8 Blood lymphocytes automated count (number/volume) 1.7 10*3 1.0-4.0 Blood monocytes automated count (number/volume) 0. 5 10*3 0.0-1.0 Automated eosinophil count 0.4 10*3/uL 0 .0-0.3 Automated blood basophil count (count/volume) 0.0 10*3/uL 0.0-0.1 TROPONIN I FS - 12/31/19 05:55 TROPONIN I FS < 0.30 <0.30 Comprehensive metabolic panel - 12/31/19 05:55 Serum or plasma sodium measurement (moles/volume) 138 mmol/L 135-145 Serum or plasma potassium measurement (moles/volume) 4.7 mmol/L 3.6-5.0 Serum or plasma chloride measurement (moles/volume) 103 mmol/L 98-107 Carbon dioxide 20 mmol/L 21-32 Serum or plasma anion gap determination (moles/volume) 15 mmol/L 5-14 Serum or plasma urea nitrogen measurement (mass/volume ) 14 mg/dL 7-18 Serum or plasma creatinine measurement (mass/volume) 0.97 mg/dL 0.60-1.30 Serum or plasma urea nitrogen/creatinine mass ratio 14 NRG Serum or plasma creatinine measurement w ith calculation of estimated glomerular filtration rate > NRG Serum or plasma glucose measurement (mass/volume) 139 mg/dL 70-105 Serum or plasma calcium measurement (mass/volume) 9.1 mg/dL 8.5-10.1 Serum or plasma total bilirubin measurement (mass/volu me) 0.3 mg/dL 0.1-1.0 Serum or plasma alkaline phosphatase rosana surement (enzymatic activity/volume) 64 U/L 40-136 Serum or plasma aspartate aminotransfera se measurement (enzymatic activity/volume) 25 U/L 5-34 Serum or plasma alanine aminotransferase measurement (enzymatic activity/volume) 16 U/L 0-55 Serum or plasma protein measurement (mass/volume) 7.6 g/dL 6.4-8.2 Serum or plasma albumin measurement (mass/volume) 3.9 g/dL 3.2-4.5 CALCIUM CORRECTED 9.2 mg/dL 8.5-10.1 Serum or plasma amylase measurement (enz ymatic activity/volume) - 12/31/19 05:55 Serum or plasma amylase measurement (enzymatic activit y/volume) 67 U/L 25-125 Lipase - 12/31/19 05:55 Lipase 45 U/L 8-78 Complete blood count (CBC) with automate d white blood cell (WBC) differential - 01/01/20 07:00 Blood leukocytes automated count (number/volume) 11.2 10*3/uL 4.3-11.0 Blood erythrocytes automated count (number/volume) 4.14 10*6/uL 4.35-5.85 Venous blood hemoglobin measurement (mass/volume) 11.0 g/dL 11.5-16.0 Blood hematocrit (volume fraction) 34 % 35-52 Automated erythrocyte mean corpuscular volume 83 [ foz_us] 80-99 Automated erythrocyte mean corpuscular h emoglobin (mass per erythrocyte) 27 pg 25-34 Automated erythrocyte mean corpuscular h emoglobin concentration measurement (mass/volume) 32 g/dL 32-36 Automated erythrocyte distribution width ratio 13. 7 % 10.0- 14.5 Automated blood platelet count (count/volume) 234 10*3/uL 130-400 Automated blood platelet mean volume measurement 10.8 [foz_us] 7.4-10.4 Automated blood neutrophils/100 leukocytes 87 % 42-75 Automated blood lymphocytes/100 leukocytes 8 % 12-44 Blood monocytes/100 leukocytes 5 % 0-12 Automated blood eosinophils/100 leukocytes 0 % 0-10 Automated blood basophils/100 leukocytes 0 % 0-10 Blood neutrophils automated count (number/volume) 9.7 10*3 1.8-7.8 Blood lymphocytes automated count (number/volume) 0.9 10*3 1.0-4.0 Blood monocytes automated count (number/volume) 0. 5 10*3 0.0-1.0 Automated eosinophil count 0.0 10*3/uL 0 .0-0.3 Automated blood basophil count (count/volume) 0.0 10*3/uL 0.0-0.1 Comprehensive metabolic panel - 01/01/20 07:00 Serum or plasma sodium measurement (moles/volume) 137 mmol/L 135-145 Serum or plasma potassium measurement (moles/volume) 3.7 mmol/L 3.6-5.0 Serum or plasma chloride measurement (moles/volume) 106 mmol/L 98-107 Carbon dioxide 22 mmol/L 21-32 Serum or plasma anion gap determination (moles/volume) 9 mmol/L 5-14 Serum or plasma urea nitrogen measurement (mass/volume ) 12 mg/dL 7-18 Serum or plasma creatinine measurement (mass/volume) 0.82 mg/dL 0.60-1.30 Serum or plasma urea nitrogen/creatinine mass ratio 15 NRG Serum or plasma creatinine measurement w ith calculation of estimated glomerular filtration rate > NRG Serum or plasma glucose measurement (mass/volume) 103 mg/dL 70-105 Serum or plasma calcium measurement (mass/volume) 8.8 mg/dL 8.5-10.1 Serum or plasma total bilirubin measurement (mass/volu me) 0.5 mg/dL 0.1-1.0 Serum or plasma alkaline phosphatase rosana surement (enzymatic activity/volume) 79 U/L 40-136 Serum or plasma aspartate aminotransfera se measurement (enzymatic activity/volume) 32 U/L 5-34 Serum or plasma alanine aminotransferase measurement (enzymatic activity/volume) 46 U/L 0-55 Serum or plasma protein measurement (mass/volume) 6.5 g/dL 6.4-8.2 Serum or plasma albumin measurement (mass/volume) 3.4 g/dL 3.2-4.5 CALCIUM CORRECTED 9.3 mg/dL 8.5-10.1 Manual absolute plasma cell count - 12/20 02/05 07:00 Blood monocytes/100 leukocytes 3 % NRG Manual blood segmented neutrophils/100 leukocytes 89 % NRG Blood band neutrophils/100 leukocytes 0 % NRG Manual blood lymphocytes/100 leukocytes 8 % NRG Manual eosinophils/100 leukocytes in nose 0 % NRG Manual blood basophils/100 leukocytes 0 % NRG Blood erythrocyte morphology finding identification NORMAL NRG Complete blood count (CBC) with automate d white blood cell (WBC) differential - 01/02/20 05:15 Blood leukocytes automated count (number/volume) 10.5 10*3/uL 4.3-11.0 Blood erythrocytes automated count (number/volume) 3.73 10*6/uL 4.35-5.85 Venous blood hemoglobin measurement (mass/volume) 10.1 g/dL 11.5-16.0 Blood hematocrit (volume fraction) 31 % 35-52 Automated erythrocyte mean corpuscular volume 83 [ foz_us] 80-99 Automated erythrocyte mean corpuscular h emoglobin (mass per erythrocyte) 27 pg 25-34 Automated erythrocyte mean corpuscular h emoglobin concentration measurement (mass/volume) 33 g/dL 32-36 Automated erythrocyte distribution width ratio 13. 9 % 10.0- 14.5 Automated blood platelet count (count/volume) 236 10*3/uL 130-400 Automated blood platelet mean volume measurement 10.8 [foz_us] 7.4-10.4 Automated blood neutrophils/100 leukocytes 92 % 42-75 Automated blood lymphocytes/100 leukocytes 5 % 12-44 Blood monocytes/100 leukocytes 3 % 0-12 Automated blood eosinophils/100 leukocytes 0 % 0-10 Automated blood basophils/100 leukocytes 0 % 0-10 Blood neutrophils automated count (number/volume) 9.7 10*3 1.8-7.8 Blood lymphocytes automated count (number/volume) 0.5 10*3 1.0-4.0 Blood monocytes automated count (number/volume) 0. 3 10*3 0.0-1.0 Automated eosinophil count 0.0 10*3/uL 0 .0-0.3 Automated blood basophil count (count/volume) 0.0 10*3/uL 0.0-0.1 Comprehensive metabolic panel - 01/02/20 05:15 Serum or plasma sodium measurement (moles/volume) 137 mmol/L 135-145 Serum or plasma potassium measurement (moles/volume) 4.0 mmol/L 3.6-5.0 Serum or plasma chloride measurement (moles/volume) 107 mmol/L 98-107 Carbon dioxide 21 mmol/L 21-32 Serum or plasma anion gap determination (moles/volume) 9 mmol/L 5-14 Serum or plasma urea nitrogen measurement (mass/volume ) 11 mg/dL 7-18 Serum or plasma creatinine measurement (mass/volume) 0.79 mg/dL 0.60-1.30 Serum or plasma urea nitrogen/creatinine mass ratio 14 NRG Serum or plasma creatinine measurement w ith calculation of estimated glomerular filtration rate > NRG Serum or plasma glucose measurement (mass/volume) 114 mg/dL 70-105 Serum or plasma calcium measurement (mass/volume) 8.8 mg/dL 8.5-10.1 Serum or plasma total bilirubin measurement (mass/volu me) 0.3 mg/dL 0.1-1.0 Serum or plasma alkaline phosphatase rosana surement (enzymatic activity/volume) 79 U/L 40-136 Serum or plasma aspartate aminotransfera se measurement (enzymatic activity/volume) 15 U/L 5-34 Serum or plasma alanine aminotransferase measurement (enzymatic activity/volume) 30 U/L 0-55 Serum or plasma protein measurement (mass/volume) 6.1 g/dL 6.4-8.2 Serum or plasma albumin measurement (mass/volume) 3.1 g/dL 3.2-4.5 CALCIUM CORRECTED 9.5 mg/dL 8.5-10.1 Automated blood complete blood count (he mogram) panel - 01/03/20 05:06 Blood leukocytes automated count (number/volume) 10.2 10*3/uL 4.3-11.0 Blood erythrocytes automated count (number/volume) 4.06 10*6/uL 4.35-5.85 Venous blood hemoglobin measurement (mass/volume) 10.7 g/dL 11.5-16.0 Blood hematocrit (volume fraction) 34 % 35-52 Automated erythrocyte mean corpuscular volume 83 [ foz_us] 80-99 Automated erythrocyte mean corpuscular h emoglobin (mass per erythrocyte) 26 pg 25-34 Automated erythrocyte mean corpuscular h emoglobin concentration measurement (mass/volume) 32 g/dL 32-36 Automated erythrocyte distribution width ratio 13. 6 % 10.0- 14.5 Automated blood platelet count (count/volume) 287 10*3/uL 130-400 Automated blood platelet mean volume measurement 11.3 [foz_us] 7.4-10.4 Whole blood basic metabolic panel - 12/20 04/07 05:06 Serum or plasma sodium measurement (moles/volume) 138 mmol/L 135-145 Serum or plasma potassium measurement (moles/volume) 4.2 mmol/L 3.6-5.0 Serum or plasma chloride measurement (moles/volume) 106 mmol/L 98-107 Carbon dioxide 21 mmol/L 21-32 Serum or plasma anion gap determination (moles/volume) 11 mmol/L 5-14 Serum or plasma urea nitrogen measurement (mass/volume ) 13 mg/dL 7-18 Serum or plasma creatinine measurement (mass/volume) 0.88 mg/dL 0.60-1.30 Serum or plasma urea nitrogen/creatinine mass ratio 15 NRG Serum or plasma creatinine measurement w ith calculation of estimated glomerular filtration rate > NRG Serum or plasma glucose measurement (mass/volume) 137 mg/dL 70-105 Serum or plasma calcium measurement (mass/volume) 9.1 mg/dL 8.5-10.1 Influenza virus A and B antigen detectio n - 01/03/20 11:50 FLU RESULT NEGATIVE FOR INFLUENZA A AND B ANTIGENS BY IA NRG Automated blood complete blood count (he mogram) panel - 01/08/20 04:50 Blood leukocytes automated count (number/volume) 8.3 10*3/uL 4.3-11.0 Blood erythrocytes automated count (number/volume) 3.90 10*6/uL 4.35-5.85 Venous blood hemoglobin measurement (mass/volume) 10.3 g/dL 11.5-16.0 Blood hematocrit (volume fraction) 32 % 35-52 Automated erythrocyte mean corpuscular volume 82 [ foz_us] 80-99 Automated erythrocyte mean corpuscular h emoglobin (mass per erythrocyte) 26 pg 25-34 Automated erythrocyte mean corpuscular h emoglobin concentration measurement (mass/volume) 32 g/dL 32-36 Automated erythrocyte distribution width ratio 13. 3 % 10.0- 14.5 Automated blood platelet count (count/volume) 307 10*3/uL 130-400 Automated blood platelet mean volume measurement 10.0 [foz_us] 7.4-10.4 Serum or plasma creatinine measurement ( mass/volume) - 01/08/20 04:50 Serum or plasma creatinine measurement (mass/volume) 0.73 mg/dL 0.60-1.30 Encounters ACCT No. Visit Date/Time Discharge Status Pt. Type Provider Facility Loc./Unit Complaint [id number] 06/10/2019 11:30:00 06/10/2019 23:59: 59 CLS Outpatient AMI [facility]DO[facility] [id number] 01/02/2020 09:30:00 020 14:30:00 DIS Inpatient ALVIN LAMB, KIRA [facility] 4TH COLITIS EPIGASTRIC AB DOMINAL PAIN
--- OUTSIDE RECORDS SUMMARY | 2020-01-10 06:01 | XMS REPORT | Continuity of Care Document ---
Author Organization Unknown Address Unknown Phone Unavailable Allergies Active Description Code Type Severity Reaction Onset Reported/Identified Relationship to Patient Clinical Status Yes codeine [id number] Drug Allergy Unknown N/A 12/31/2019 Medications There [...] mg/dL 0.1-1.0 Serum or plasma alkaline phosphatase rosaan surement (enzymatic activity/volume) 64 U/L 40-136 Serum [...] Status Pt. Type Provider Facility Loc./Unit Complaint [id number] 06/10/2019 11:30:00 06/10/2019 23:59: 59 CLS Outpatient AMI [facility]DO[facility] [id number] 01/02/2020 09:30:00 020 14:30:00 DIS Inpatient ALVIN LAMB, KIRA [facility] 4TH COLITIS EPIGASTRIC AB DOMINAL PAIN
== END 2020-01-09 14:30 | disposition home or self-care (01) | DRG 394 ==
LOC: EDUNIT# 05:40 → ER FS 05:44 → 4TH 09:01 → OBSVTOIN 01-02 09:30
PROVIDERS: ADMIT Surgery; ATTEND Surgery
PROC: 0D768ZZ Dilation of Stomach, Via Natural or Artificial Opening Endoscopic (ICD-10-PCS; 2020-01-08)
PROC: 0DB48ZX Excision of Esophagogastric Junction, Via Natural or Artificial Opening Endoscopic, Diagnostic (ICD-10-PCS; 2020-01-08)
PROC: 0DB68ZX Excision of Stomach, Via Natural or Artificial Opening Endoscopic, Diagnostic (ICD-10-PCS; 2020-01-08)
PROC: 0D7A8ZZ Dilation of Jejunum, Via Natural or Artificial Opening Endoscopic (ICD-10-PCS; principal; 2020-01-08 08:47)
DX: K91.89 Other postprocedural complications and disorders of digestive system (principal); K56.699 Other intestinal obstruction unspecified as to partial versus complete obstruction; K31.89 Other diseases of stomach and duodenum; K52.9 Noninfective gastroenteritis and colitis, unspecified; K29.70 Gastritis, unspecified, without bleeding; K21.0 Gastro-esophageal reflux disease with esophagitis; Z98.84 Bariatric surgery status
CPT/HCPCS: 36415; 71045; 74019; 74177; 74178; 76937; 80048; 80053; 82150; 82565; 83690; 84484; 85007; 85025; 85027; 87804; 93005; G0378

== ENCOUNTER → 2020-12-27 | Outpatient (CLI) | payer BC ==
[~2020-12-27] MED LIST: CALC-654 PO; CYAN-41 PO; DESO1TAB70 PO; FERR325T18 PO; MULT-567 PO; VITA-189 PO
[2020-12-27 13:06] LABS: BUN/CREATININE RATIO 16; CALCIUM 9.7 MG/DL (8.5-10.1); CARBON DIOXIDE 28 MMOL/L (21-32); CHLORIDE 102 MMOL/L (98-107); CREATININE SERUM 0.77 MG/DL (0.60-1.30); GFR ESTIMATED > 60; GLUCOSE 90 MG/DL (70-105); POTASSIUM 4.1 MMOL/L (3.6-5.0); SODIUM 139 MMOL/L (135-145)
== END ==
LOC: LAB FS 11:42
PROVIDERS: ATTEND Orthopaedic Surgery
DX: Z01.812 Encounter for preprocedural laboratory examination (principal); S82.851A Displaced trimalleolar fracture of right lower leg, initial encounter for closed fracture; X58.XXXA Exposure to other specified factors, initial encounter
CPT/HCPCS: 36415; 80048

== ENCOUNTER → 2021-02-08 | Outpatient (CLI) | payer BC ==
--- NOTE | 2021-02-08 14:41 | Diagnostic Imaging Report ---
INDICATION: Postmenopausal female. COMPARISON: None. FINDINGS: AP Spine L1-L4: [BMD (g/cm2): 1.081] [T-Score: -1.0] [Z-Score: -1.0] [BMD Previous: NA] [BMD % Change: NA] LT Hip Neck: [BMD (g/cm2): 0.935] [T-Score: -0.7] [Z-Score: -0.2] LT Hip Total: [BMD (g/cm2):0.881] [T-Score:-1.0] [Z-Score: -0.9] [BMD Previous: NA] [BMD % Change: NA] RT Hip Neck: [BMD (g/cm2):0.872] [T-Score:-1.2] [Z-Score:-0.7] RT Hip Total: [BMD (g/cm2):0.852] [T-score:-1.2] [Z-Score:-1.1] [BMD Previous:NA] [BMD % Change:NA] *Indicates significant change from prior examination based on 95% confidence level. World Health Organization criteria for BMD interpretation classify patients as Normal (T-score at or above -1.0), Osteopenic (T-score between -1.0 and -2.5) or Osteoporotic (T-score at or below -2.5). LIMITATIONS AND MODIFICATION: None. FRACTURE RISK (FRAX SCORE): The ten year probability of (%): Major Osteoporotic Fracture: [9.3] Hip Fracture: [0.6] IMPRESSION: 1. Osteopenia (Low bone mass). 2. Baseline examination. 3. See below National Osteopor[employer] Foundation guidelines on when to potentially initiate pharmacologic therapy. Based on the National Osteoporosis Foundation Guidelines, pharmacologic treatment should be initiated in any of the following, unless clinical conditions suggest otherwise: * Any patient with prior fragility fracture of the hip or vertebrae. A spine fracture indicates 5X risk for subsequent spine fracture and 2X risk for subsequent hip fracture. * Osteoporosis (T-score <-2.5). * Postmenopausal women and men age 50 and older with low bone mass/osteopenia (T-score between -1.0 and -2.5) by DXA and 10-year major osteoporotic fracture greater than 20% or a 10-year probability of hip fracture greater than 3%. These fracture risks are supplied above in the FRAX score, if applicable. * Clinician judgement and/or patient preferences may indicate treatment for people with 10-year fracture probabilities above or below these levels. Dictated by: Dictated on workstation # [id number]
== END ==
LOC: RAD 13:09
PROVIDERS: ATTEND Nurse Practitioner Family
DX: Z13.820 Encounter for screening for osteoporosis (principal); M85.80 Other specified disorders of bone density and structure, unspecified site
CPT/HCPCS: 77080